=== PATIENT | female | born 1940 | race Caucasian/White ===

== ENCOUNTER 2017-02-19 13:22 | Emergency (ER) | payer MEDICARE ==
[2017-02-19] MEDS ORDERED: DIPH/PERTUSS(ACELL)/TETANUS VAC/PF 0.5 ML SYR (>=10YO) IM ONE (14:11)
--- NOTE | 2017-02-19 14:22 | ER Document Report ---
ED Extremity Problem, Lower - General Chief Complaint: Knee Injury Stated Complaint: FALL LEFT KNEE PAIN Mode of Arrival: Ambulatory Information source: Patient TRAVEL OUTSIDE OF THE [place] IN LAST 30 DAYS: No - HPI Patient complains to provider of: Injury, Pain, Swelling Location: Knee Notes: Patient states that she was walking through her house and tripped over some rolled up carpet falling and landing on her left knee. She fell she slid forward and scraped her left forearm as well. She denies hitting her head. She denies loss of consciousness. She denies any neck or back pain. No chest pain or shortness of breath. No abdominal pain. She takes aspirin, denies any other sort of anticoagulant medications. She denies any blurred or loss vision. She complains of pain in the left knee with swelling. She is able to ambulate. She's had a prior knee replacement done. She also has a skin tear to the left forearm. Bleeding is controlled. She denies any bony tenderness to the left arm. She denies any numbness, tingling, weakness. She has no other complaints at this moment. - Related Data Allergies/Adverse Reactions: erythromycin base [Erythromycin Base] Allergy (Intermediate, Verified 02/19/17 13:35) Hives prednisone [Prednisone] Adverse Reaction (Intermediate, Verified 02/19/17 13:35) Hyperactivity Past Medical History - Social History Smoking Status: Former Smoker Chew tobacco use (# tins/day): No Frequency of alcohol use: None Drug Abuse: None Family History: Reviewed & Not Pertinent Patient has suicidal ideation: No Patient has homicidal ideation: No - Past Medical History Cardiac Medical History: Reports: Hx Coronary Artery Disease, Hx Hypercholesterolemia - meds x 5 years, Hx Hypertension - meds x 10 years, Hx Heart Murmur Denies: Hx Atrial Fibrillation, Hx Congestive Heart Failure, Hx Heart Attack , Hx Peripheral Vascular Disease, Hx Pulmonary Embolism Pulmonary Medical History: Reports: Hx Bronchitis - multiple times, Hx Pneumonia - @ [facility] approx 2 years ago Denies: Hx Asthma, Hx COPD - ? lung disease on 1 yr for years, Hx Respiratory Failure, Hx Sleep Apnea, Hx Tuberculosis Neurological Medical History: Denies: Hx Cerebrovascular Accident, Hx Seizures Renal/ Medical History: Denies: Hx End Stage Renal Disease, Hx Kidney Stones, Hx Ovarian Cysts, Hx Peritoneal Dialysis, Hx Pelvic Inflammatory Disease Malignancy Medical History: Reports: Hx Cervical Cancer - [facility] 1969 (cervical vs "uterine" ca). Denies: Hx Breast Cancer, Hx Leukemia, Hx Lung Cancer, Hx Ovarian Cancer GI Medical History: Reports: Hx Gastroesophageal Reflux Disease - meds x 10 years, Hx Ulcer - approx 15 years ago (tx'ed p.o. meds x 15 days). Denies: Hx Crohn's Disease, Hx Hepatitis, Hx Hiatal Hernia, Hx Irritable Bowel, Hx Liver Failure Musculoskeltal Medical History: Reports Hx Arthritis, Denies Hx Fibromyalgia, Denies Hx Multiple Sclerosis, Denies Hx Muscular Dystrophy Psychiatric Medical History: Reports: Hx Depression - meds x 10 years Denies: Hx Bipolar Disorder, Hx Dementia, Hx Post Traumatic Stress Disorder, Hx Schizophrenia Traumatic Medical History: Denies: Hx Fractures Infectious Medical History: Denies: Hx Hepatitis, Hx HIV Past Surgical History: Reports: Hx Cardiac Surgery - stent, Hx Gynecologic Surgery - cervix x 3, Hx Hysterectomy - [facility] 1969, Hx Orthopedic Surgery - neck and rt foot, left knee. Denies: Hx Appendectomy, Hx Bowel Surgery, Hx Section, Hx Cholecystectomy, Hx Colostomy, Hx Coronary Artery Bypass Graft, Hx Gastric Bypass Surgery, Hx Herniorrhaphy, Hx Mastectomy, Hx Open Heart Surgery, Hx Pacemaker, Hx Tonsillectomy, Hx Tubal Ligation - Immunizations Hx Diphtheria, Pertussis, Tetanus Vaccination: Yes Hx Pneumococcal Vaccination: 10/23/13 Review of Systems - Review of Systems -: Yes All other systems reviewed and negative Physical Exam - Vital signs Vitals: Temp Pulse Resp BP Pulse Ox 97.8 F 59 L 19 148/61 H 90 L 02/19/17 13:28 02/19/17 13:28 02/19/17 13:28 02/19/17 13:28 02/19/17 13:28 - Notes Notes: GENERAL: alert, cooperative, nontoxic, no distress. HEAD: normocephalic, atraumatic EYES: conjunctiva pink without discharge, no external redness or swelling. EARS: no external swelling, no external redness NOSE: atraumatic, no external swelling MOUTH/THROAT: mucous membranes moist and pink NECK: soft, supple, full range of motion, no meningismus. CHEST: no distress, lungs clear and equal throughout. No wheezing, rales, rhonchi. CARDIAC: regular rate and rhythm, no murmur, normal capillary refill, normal pulses. BACK: full range of motion, no CVA tenderness. No midline tenderness step-off or crepitus to palpation of the cervical, thoracic, lumbar spine. EXTREMITIES: full range of motion of all extremities. Patient started to have swelling to the left anterior knee. She has some mild tenderness to palpation of this. Slight ecchymosis. No erythema. No obvious ligament instability. Normal pulse and sensation distally. Normal straight leg raise. Patient has 2 skin tears to the volar aspect of the left forearm. No active bleeding. Most of the skin is missing, there is a small area where the skin has been peeled back. NEURO: alert and oriented 3, no focal deficits, full range of motion of all extremities. PYSCH: appropriate mood, affect. Patient is cooperative. SKIN: pink, warm, dry, no rash. Course - Re-evaluation Re-evalutation: 02/19/17 15:49 Patient is nontoxic. Stable vitals. The patient has a contusion to the left knee. No instability of the joint. She has skin tear to the left forearm which was cleaned and dressed. The skin was trimmed. The patient will be discharged home with instructions to ice and elevate and compress her knee. She is already on Percocet for chronic pain. She can take this as needed. Follow-up with her knee continues to hurt in one week, sooner for increased pain , fever, redness, any further concerns. The patient is noted to have elevated blood pressure during today's emergency department visit. The patient was informed of this finding. The patient was instructed that this may be related to pre-hypertension and requires further evaluation with a primary care provider. The patient has no hypertensive symptoms at this time. The patient's emergency department workup and current diagnosis were explained to the patient and or family. Follow-up instructions were provided. Medications if prescribed were discussed. Instructions for when to return to the emergency department including specific worrisome symptoms were discussed with the patient and/or family. - Vital Signs Vital signs: Temp Pulse Resp BP Pulse Ox 97.8 F 59 L 19 148/61 H 90 L 02/19/17 13:28 02/19/17 13:28 02/19/17 13:28 02/19/17 13:28 02/19/17 13:28 - Diagnostic Test Radiology reviewed: Image reviewed, Reports reviewed - Negative Procedures - Immobilization left knee Pre-Proc Neuro Vasc Exam: Normal Immobilizer type: Ramon wrap Performed by: PCT Post-Proc Neuro Vasc Exam: Normal Alignment checked and good: Yes Discharge - Discharge Clinical Impression: Skin tear Contusion, knee Qualifiers: Encounter type: initial encounter Laterality: left Qualified Code(s): S80.02XA - Contusion of left knee, initial encounter Condition: Stable Disposition: HOME, SELF-CARE Instructions: Ice & Elevation ([facility]), Sprained Knee ([facility]) Additional Instructions: Take her normal pain medication as prescribed. Wear Ramon wrap. Apply ice. Clean wound twice a day with soap and water. Follow-up for increased pain, fever, redness, swelling, drainage, any further concerns. Your blood pressure was elevated during today's visit. Have this rechecked with your doctor. Forms: Elevated Blood Pressure
[2017-02-19 16:00] VITALS: BP 138/70
== END 2017-02-19 16:00 | disposition home or self-care (01) ==
LOC: ER 13:22
DX: S51.812A Laceration without foreign body of left forearm, initial encounter (principal); S80.02XA Contusion of left knee, initial encounter; W01.0XXA Fall on same level from slipping, tripping and stumbling without subsequent striking against object, initial encounter; Y92.009 Unspecified place in unspecified non-institutional (private) residence as the place of occurrence of the external cause; Y99.8 Other external cause status; I25.10 Atherosclerotic heart disease of native coronary artery without angina pectoris; E78.00 Pure hypercholesterolemia, unspecified; I10 Essential (primary) hypertension; Z23 Encounter for immunization; Z87.891 Personal history of nicotine dependence; Z88.3 Allergy status to other anti-infective agents; Z85.41 Personal history of malignant neoplasm of cervix uteri; Z90.710 Acquired absence of both cervix and uterus
CPT/HCPCS: 90471; 90715; 99283

== ENCOUNTER → 2017-05-22 | Outpatient (CLI) | payer MEDICARE ==
[2017-05-22 15:16] LABS: ANION GAP 10 (5-19); BLOOD UREA NITROGEN 14 mg/dL (7-20); CALCIUM 9.2 mg/dL (8.4-10.2); CARBON DIOXIDE 29 mmol/L (22-30); CHLORIDE 98 mmol/L (98-107); CHOLESTEROL 132.85 mg/dL (0-200); CREATININE RESULT 0.85 mg/dL (0.52-1.25); Direct HDL 48 mg/dL (>40); GLUCOSE 87 mg/dL (75-110); POTASSIUM 4.7 mmol/L (3.6-5.0); SODIUM 136.9 mmol/L (137-145); TRIGLYCERIDES 99 mg/dL (<150)
[2017-05-22 15:29] LABS: DIRECT LDL 58 mg/dL (<100)
== END ==
LOC: OD 13:27
PROVIDERS: ATTEND Internal Medicine Cardiovascular Disease
DX: E78.00 Pure hypercholesterolemia, unspecified (principal); Z79.899 Other long term (current) drug therapy
CPT/HCPCS: 36415; 80048; 80061

== ENCOUNTER → 2017-07-06 | Outpatient (CLI) | payer MEDICARE ==
[2017-07-06 11:25] LABS: ANION GAP 8 (5-19); BLOOD UREA NITROGEN 16 mg/dL (7-20); CALCIUM 9.8 mg/dL (8.4-10.2); CARBON DIOXIDE 31 mmol/L (22-30); CHLORIDE 98 mmol/L (98-107); CREATININE RESULT 0.85 mg/dL (0.52-1.25); GLUCOSE 81 mg/dL (75-110); SODIUM 137.2 mmol/L (137-145)
== END ==
LOC: OD 08:38
PROVIDERS: ATTEND Internal Medicine Nephrology
DX: N18.2 Chronic kidney disease, stage 2 (mild) (principal); E87.5 Hyperkalemia
CPT/HCPCS: 36415; 80048

== ENCOUNTER → 2017-10-20 | Outpatient (CLI) | payer MEDICARE ==
--- NOTE | 2017-10-20 11:57 | RADIOLOGY REPORT (SQ) ---
EXAM DESCRIPTION: CHEST PA/LATERAL COMPLETED DATE/TIME: 10/20/2017 11:00 am REASON FOR STUDY: BRONCHIECTASIS, UNCOMPLICATED COMPARISON: Chest films 10/14/2011, 04/23/2015, 07/02/2015 EXAM PARAMETERS: NUMBER OF VIEWS: two views TECHNIQUE: Digital Frontal and Lateral radiographic views of the chest acquired. RADIATION DOSE: NA LIMITATIONS: none FINDINGS: LUNGS AND PLEURA: Patchy right basilar airspace disease, pneumonia versus atelectasis. Minimal bandlike atelectasis left lung base. No pleural effusions or pneumothorax. MEDIASTINUM AND HILAR STRUCTURES: No masses or contour abnormalities. HEART AND VASCULAR STRUCTURES: Heart normal size. No evidence for failure. BONES: No acute findings. HARDWARE: Lower cervical fusion hardware. Electrode wires over the posterior chest soft tissues OTHER: No other significant finding. IMPRESSION: Right basilar airspace disease pneumonia versus atelectasis TECHNICAL DOCUMENTATION: JOB ID: [id number] [employer]- All Rights Reserved
== END ==
LOC: OD 10:43
PROVIDERS: ATTEND Physician Assistant
DX: J47.9 Bronchiectasis, uncomplicated (principal)
CPT/HCPCS: 71020

== ENCOUNTER → 2017-11-14 | Outpatient (CLI) | payer MEDICARE ==
--- NOTE | 2017-11-14 09:50 | RADIOLOGY REPORT (SQ) ---
EXAM DESCRIPTION: CHEST PA/LATERAL COMPLETED DATE/TIME: 11/14/2017 9:26 am REASON FOR STUDY: BRONCHIECTASIS WITH (ACUTE) EXACERBATION COMPARISON: Two-view chest 10/20/2017, 07/02/2015 EXAM PARAMETERS: NUMBER OF VIEWS: two views TECHNIQUE: Digital Frontal and Lateral radiographic views of the chest acquired. RADIATION DOSE: NA LIMITATIONS: none FINDINGS: LUNGS AND PLEURA: Bandlike scarring or atelectasis in the right posterior lower lobe. No fluffy alveolar infiltrates worrisome for edema or pneumonia. No pleural effusion. No pneumothor ax. MEDIASTINUM AND HILAR STRUCTURES: No masses or contour abnormalities. HEART AND VASCULAR STRUCTURES: Heart normal size. No evidence for failure. BONES: Osteoporotic without thoracic compression HARDWARE: Lower cervical fixation hardware, electrodes for a cervical neurostimulator OTHER: No other significant finding. IMPRESSION: Bandlike atelectasis right lower lobe TECHNICAL DOCUMENTATION: JOB ID: [id number] [employer]- All Rights Reserved
== END ==
LOC: OD 09:05
PROVIDERS: ATTEND Physician Assistant
DX: J47.1 Bronchiectasis with (acute) exacerbation (principal); J98.11 Atelectasis
CPT/HCPCS: 71046

== ENCOUNTER → 2017-11-15 | Outpatient (CLI) | payer MEDICARE ==
[2017-11-15 16:12] LABS: ALANINE AMINOTRANSFERASE 42 U/L (9-52); ALBUMIN 4.2 g/dL (3.5-5.0); ALKALINE PHOSPHATASE 81 U/L (38-126); ANION GAP 10 (5-19); ASPARTATE AMINO TRANSFERASE 41 U/L (14-36); BILIRUBIN,DIRECT 0.2 mg/dL (0.0-0.4); BILIRUBIN,TOTAL 0.4 mg/dL (0.2-1.3); BLOOD UREA NITROGEN 12 mg/dL (7-20); CALCIUM 9.6 mg/dL (8.4-10.2); CARBON DIOXIDE 27 mmol/L (22-30); CHLORIDE 101 mmol/L (98-107); CHOLESTEROL 150.21 mg/dL (0-200); GLUCOSE 86 mg/dL (75-110); POTASSIUM 4.5 mmol/L (3.6-5.0); SODIUM 137.5 mmol/L (137-145); TOTAL PROTEIN 6.4 g/dL (6.3-8.2); TRIGLYCERIDES 103 mg/dL (<150)
[2017-11-15 16:26] LABS: DIRECT LDL 65 mg/dL (<100)
== END ==
LOC: OD 14:34
PROVIDERS: ATTEND Internal Medicine Cardiovascular Disease
DX: E78.00 Pure hypercholesterolemia, unspecified (principal); Z79.899 Other long term (current) drug therapy; I10 Essential (primary) hypertension
CPT/HCPCS: 36415; 80048; 80061; 80076

== ENCOUNTER → 2018-01-10 | Outpatient (CLI) | payer MEDICARE ==
[2018-01-10 10:34] LABS: APPEARANCE,URINE CLEAR; BILIRUBIN,URINE NEGATIVE (NEGATIVE); COLOR,URINE YELLOW; GLUCOSE, URINE NEGATIVE (NEGATIVE); KETONES,URINE NEGATIVE (NEGATIVE); LEUKOCYTE ESTERASE,URINE TRACE (NEGATIVE); NITRITE,URINE NEGATIVE (NEGATIVE); PROTEIN,URINE NEGATIVE (NEGATIVE); URINE SPECIFIC GRAVITY 1.025
[2018-01-10 11:05] LABS: ANION GAP 9 (5-19); BLOOD UREA NITROGEN 19 mg/dL (7-20); CALCIUM 9.5 mg/dL (8.4-10.2); CARBON DIOXIDE 28 mmol/L (22-30); CHLORIDE 98 mmol/L (98-107); GLUCOSE 85 mg/dL (75-110); POTASSIUM 4.9 mmol/L (3.6-5.0); SODIUM 134.5 mmol/L (137-145)
[2018-01-11 09:39] LABS: CREATININE URINE 213.4 mg/dL (Not Estab.); MICROALBUMIN URINE 4.5 ug/mL (Not Estab.)
== END ==
LOC: OD 09:50
PROVIDERS: ATTEND Internal Medicine Nephrology
DX: N18.2 Chronic kidney disease, stage 2 (mild) (principal); E87.5 Hyperkalemia
CPT/HCPCS: 36415; 80048; 81001; 82043; 82570

== ENCOUNTER → 2018-07-17 | Outpatient (CLI) | payer MEDICARE ==
[2018-07-17 11:12] LABS: APPEARANCE,URINE CLOUDY; BILIRUBIN,URINE NEGATIVE (NEGATIVE); COLOR,URINE YELLOW; GLUCOSE, URINE NEGATIVE (NEGATIVE); KETONES,URINE NEGATIVE (NEGATIVE); LEUKOCYTE ESTERASE,URINE TRACE (NEGATIVE); NITRITE,URINE NEGATIVE (NEGATIVE); PROTEIN,URINE NEGATIVE (NEGATIVE); URINE SPECIFIC GRAVITY 1.009; UROBILINOGEN,URINE NEGATIVE mg/dL (<2.0)
[2018-07-17 11:35] LABS: ANION GAP 5 (5-19); BLOOD UREA NITROGEN 12 mg/dL (7-20); CALCIUM 9.2 mg/dL (8.4-10.2); CARBON DIOXIDE 30 mmol/L (22-30); CHLORIDE 100 mmol/L (98-107); GLUCOSE 77 mg/dL (75-110); POTASSIUM 4.4 mmol/L (3.6-5.0); SODIUM 135.4 mmol/L (137-145)
== END ==
LOC: OD 10:18
PROVIDERS: ATTEND Internal Medicine Nephrology
DX: N18.2 Chronic kidney disease, stage 2 (mild) (principal); E87.1 Hypo-osmolality and hyponatremia
CPT/HCPCS: 36415; 80048; 81001

== ENCOUNTER → 2018-08-15 | Outpatient (CLI) | payer MEDICARE ==
[2018-08-15 09:30] LABS: ALANINE AMINOTRANSFERASE 24 U/L (9-52); ALBUMIN 3.8 g/dL (3.5-5.0); ALKALINE PHOSPHATASE 105 U/L (38-126); ANION GAP 13 (5-19); ASPARTATE AMINO TRANSFERASE 23 U/L (14-36); BILIRUBIN,DIRECT 0.2 mg/dL (0.0-0.4); BILIRUBIN,TOTAL 0.3 mg/dL (0.2-1.3); BLOOD UREA NITROGEN 16 mg/dL (7-20); CALCIUM 9.4 mg/dL (8.4-10.2); CARBON DIOXIDE 26 mmol/L (22-30); CHLORIDE 96 mmol/L (98-107); CHOLESTEROL 132.02 mg/dL (0-200); GLUCOSE 102 mg/dL (75-110); POTASSIUM 4.5 mmol/L (3.6-5.0); TOTAL PROTEIN 6.4 g/dL (6.3-8.2); TRIGLYCERIDES 68 mg/dL (<150)
[2018-08-15 09:41] LABS: DIRECT LDL 68 mg/dL (<100)
[2018-08-15 09:45] LABS: CREATINE KINASE < 20 U/L (30-135)
== END ==
LOC: OD 08:12
PROVIDERS: ATTEND Internal Medicine Cardiovascular Disease
DX: E78.00 Pure hypercholesterolemia, unspecified (principal); I25.119 Atherosclerotic heart disease of native coronary artery with unspecified angina pectoris; I10 Essential (primary) hypertension; Z79.899 Other long term (current) drug therapy
CPT/HCPCS: 36415; 80048; 80061; 80076; 82550

== ENCOUNTER → 2018-08-30 | Outpatient (CLI) | payer MEDICARE ==
[2018-08-30 10:38] LABS: BLOOD UREA NITROGEN 17 mg/dL (7-20); CALCIUM 9.5 mg/dL (8.4-10.2); CARBON DIOXIDE 29 mmol/L (22-30); GLUCOSE 83 mg/dL (75-110); SODIUM 140.6 mmol/L (137-145)
[2018-08-30 10:40] LABS: ANION GAP 11 (5-19); CHLORIDE 101 mmol/L (98-107)
== END ==
LOC: OD 09:29
PROVIDERS: ATTEND Physician Assistant
DX: I12.9 Hypertensive chronic kidney disease with stage 1 through stage 4 chronic kidney disease, or unspecified chronic kidney disease (principal); N18.3 Chronic kidney disease, stage 3 (moderate); Z79.899 Other long term (current) drug therapy
CPT/HCPCS: 36415; 80048

== ENCOUNTER → 2018-09-04 | Outpatient (CLI) | payer MEDICARE ==
--- NOTE | 2018-09-04 15:22 | WOMENS IMAGING REPORT ---
EXAM DESCRIPTION: 3D SCREENING MAMMO BILAT COMPLETED DATE/TIME: 09/04/2018 1:12 pm REASON FOR STUDY: BILATERAL SCREENING MAMMO 3D/Z12.31 Z12.31 ENCNTR SCREEN MAMMOGRAM FOR MALIGNANT NEOPLASM OF MARIEL COMPARISON: Multiple since 2008 TECHNIQUE: Standard craniocaudal and mediolateral oblique views of each breast recorded using digita l acquisition and breast tomosynthesis. LIMITATIONS: None. FINDINGS: No masses, calcifications or architectural distortion. No areas of suspicion. Read with the assistance of CAD. .[facility] - R2 Cenova Version 1.3 .[facility] Imaging - R2 Cenova Version 1.3 .[facility] - R2 Cenova Version 2.4 .[facility] [place] R2 Cenova Version 2.4 .[facility] - R2 Top Lift Trimmer Version 9.2 IMPRESSION: NORMAL MAMMOGRAM. BIRADS 1. BREAST DENSITY: c. The breasts are heterogeneously dense, which may obscure small masses. BIRAD: 1 NEGATIVE RECOMMENDATION: ROUTINE SCREENING Please continue yearly bilateral screening mammography/tomosynthesis in August 2019 COMMENT: The patient has been notified of the results by letter per SA requirements. Additional no tification policies are in place for contacting patient with suspicious or incomplete findings. Quality ID #[id number]: The [employer] recommends an annual screening mammogram for women aged 40 years or over. This facility utilizes a reminder system to ensure that all patients receive reminder letters, and/or direct phone calls for appointments. This includes reminders for routine scr eening mammograms, diagnostic mammograms, or other Breast Imaging Interventions when appropriate. Th is patient will be placed in the appropriate reminder system. The [employer] (ACR) has developed recommendations for screening MRI of the breast s in certain patient populations, to be used in conjunction with mammography. Breast MRI surveillanc e may be appropriate for women with more than 20% lifetime risk of developing breast cancer as deter mined by genetic testing, significant family history of the disease, or history of mantle radiation f or Hodgkins Disease. ACR Practice Guidelines 2008. DBT Technology DBT is a type of tomographic mammography. With conventional mammography, overlapping breast tissue ma y make lesions difficult to detect, even with good compression. DBT uses an x-ray tube that rotates a round the breast, taking images at different angles. These images are then combined to create thin sl ices of the breast that the radiologist can view as a 3D reconstruction. The [employer] unit can perform full-field digital mammograms (2D imaging); or DBT (3D imaging); or both, in a combination mode that quickly performs both the mammogram and the tomosynthesis scan while the breast is still compressed. PQRS 6045F: Fluoroscopic imaging is not utilized for breast tomosynthesis. TECHNICAL DOCUMENTATION: FINDING NUMBER: (1) ASSESSMENT: (1) JOB ID: [id number] [employer]- All Rights Reserved Reading location - IP/workstation name: [email or web address]
== END ==
LOC: WI 12:42
PROVIDERS: ATTEND Physician Assistant
DX: Z12.31 Encounter for screening mammogram for malignant neoplasm of breast (principal)
CPT/HCPCS: 77063; 77067

== ENCOUNTER → 2018-09-25 | Outpatient (CLI) | payer MEDICARE ==
[2018-09-25 10:26] LABS: ANION GAP 10 (5-19); BLOOD UREA NITROGEN 21 mg/dL (7-20); CALCIUM 9.6 mg/dL (8.4-10.2); CARBON DIOXIDE 29 mmol/L (22-30); CHLORIDE 100 mmol/L (98-107); GLUCOSE 83 mg/dL (75-110); POTASSIUM 5.2 mmol/L (3.6-5.0); SODIUM 139.3 mmol/L (137-145)
== END ==
LOC: OD 09:06
PROVIDERS: ATTEND Internal Medicine Cardiovascular Disease
DX: I12.9 Hypertensive chronic kidney disease with stage 1 through stage 4 chronic kidney disease, or unspecified chronic kidney disease (principal); N18.3 Chronic kidney disease, stage 3 (moderate); E87.5 Hyperkalemia
CPT/HCPCS: 36415; 80048

== ENCOUNTER → 2018-09-27 | Outpatient (CLI) | payer MEDICARE ==
[2018-09-27 08:44] LABS: ANION GAP 7 (5-19); BLOOD UREA NITROGEN 22 mg/dL (7-20); CALCIUM 9.5 mg/dL (8.4-10.2); CARBON DIOXIDE 33 mmol/L (22-30); CHLORIDE 99 mmol/L (98-107); GLUCOSE 79 mg/dL (75-110); POTASSIUM 5.5 mmol/L (3.6-5.0); SODIUM 138.8 mmol/L (137-145)
== END ==
LOC: LAB 08:00
PROVIDERS: ATTEND Internal Medicine Cardiovascular Disease
DX: E87.5 Hyperkalemia (principal)
CPT/HCPCS: 36415; 80048

== ENCOUNTER → 2018-10-02 | Outpatient (CLI) | payer MEDICARE ==
[2018-10-02 08:50] LABS: ANION GAP 9 (5-19); BLOOD UREA NITROGEN 21 mg/dL (7-20); CALCIUM 9.1 mg/dL (8.4-10.2); CARBON DIOXIDE 29 mmol/L (22-30); CHLORIDE 101 mmol/L (98-107); GLUCOSE 81 mg/dL (75-110); POTASSIUM 5.1 mmol/L (3.6-5.0); SODIUM 139.1 mmol/L (137-145)
== END ==
LOC: LAB 08:21
PROVIDERS: ATTEND Internal Medicine Cardiovascular Disease
DX: E87.5 Hyperkalemia (principal)
CPT/HCPCS: 36415; 80048

== ENCOUNTER → 2018-10-18 | Outpatient (CLI) | payer MEDICARE ==
[2018-10-18 15:19] LABS: ANION GAP 6 (5-19); BLOOD UREA NITROGEN 16 mg/dL (7-20); CALCIUM 9.6 mg/dL (8.4-10.2); CARBON DIOXIDE 33 mmol/L (22-30); CHLORIDE 94 mmol/L (98-107); GLUCOSE 100 mg/dL (75-110); POTASSIUM 5.2 mmol/L (3.6-5.0); SODIUM 133.1 mmol/L (137-145)
== END ==
LOC: LAB 14:44
PROVIDERS: ATTEND Internal Medicine Cardiovascular Disease
DX: E87.5 Hyperkalemia (principal)
CPT/HCPCS: 36415; 80048

== ENCOUNTER → 2018-11-20 | Outpatient (CLI) | payer SELFPAY ==
[2018-11-20 12:36] LABS: ANION GAP 10 (5-19); BLOOD UREA NITROGEN 15 mg/dL (7-20); CALCIUM 9.4 mg/dL (8.4-10.2); CARBON DIOXIDE 30 mmol/L (22-30); CHLORIDE 96 mmol/L (98-107); GLUCOSE 84 mg/dL (75-110); POTASSIUM 4.8 mmol/L (3.6-5.0)
== END ==
LOC: LAB 11:55
PROVIDERS: ATTEND Internal Medicine Cardiovascular Disease
DX: I10 Essential (primary) hypertension (principal); Z79.899 Other long term (current) drug therapy
CPT/HCPCS: 36415; 80048

== ENCOUNTER → 2018-12-04 | Outpatient (CLI) | payer MEDICARE ==
--- NOTE | 2018-12-04 12:31 | WOMENS IMAGING REPORT ---
EXAM DESCRIPTION: BONE DENSITY HIP/SPINE COMPLETED DATE/TIME: 12/04/2018 10:28 am REASON FOR STUDY: MENOPAUSE;Z78.0 Z78.0 ASYMPTOMATIC MENOPAUSAL STATE COMPARISON: 2007 TECHNIQUE: Dual-Energy X-ray Absorptiometry (DEXA) of the AP Spine and Hip. LIMITATIONS: None. FINDINGS: LUMBAR SPINE: The bone mineral density (BMD) measured from L1-L4 in the AP projection correlates with a T-score of 2.9, which is normal as defined by the World Health Organization. HIP: The bone mineral density (BMD) measured in the left hip correlates with a T-score of 0.1, which is no rmal as defined by the World Health Organization. IMPRESSION: 1. LUMBAR SPINE: NORMAL. 2. HIP: NORMAL. COMMENT: The World Health Organization defines low BMD as follows: T-score: Normal: Greater than -1.0 Osteopenia: Between -1.0 and -2.5 Osteoporosis: Less than -2.5 without fractures Established osteoporosis: Less than -2.5 with fractures In general, you may wish to consider: Diagnosis Treatment Follow-up DEXA Normal BMD Prevention 2-3 years Osteopenia Prevention/Therapy 1-2 years Osteoporosis Therapy Yearly TECHNICAL DOCUMENTATION: JOB ID: [id number] [employer]- All Rights Reserved Reading location - IP/workstation name: [email or web address]
== END ==
LOC: WI 10:03
PROVIDERS: ATTEND Physician Assistant
DX: Z78.0 Asymptomatic menopausal state (principal)
CPT/HCPCS: 77080

== ENCOUNTER → 2019-01-24 | Outpatient (CLI) | payer MEDICARE ==
[2019-01-24 11:56] LABS: APPEARANCE,URINE CLEAR; BILIRUBIN,URINE NEGATIVE (NEGATIVE); COLOR,URINE STRAW; GLUCOSE, URINE NEGATIVE (NEGATIVE); KETONES,URINE NEGATIVE (NEGATIVE); LEUKOCYTE ESTERASE,URINE SMALL (NEGATIVE); NITRITE,URINE NEGATIVE (NEGATIVE); PROTEIN,URINE NEGATIVE (NEGATIVE); URINE SPECIFIC GRAVITY 1.005; UROBILINOGEN,URINE NEGATIVE mg/dL (<2.0)
[2019-01-24 12:18] LABS: ANION GAP 8 (5-19); BLOOD UREA NITROGEN 24 mg/dL (7-20); CALCIUM 9.2 mg/dL (8.4-10.2); CARBON DIOXIDE 30 mmol/L (22-30); CHLORIDE 97 mmol/L (98-107); GLUCOSE 80 mg/dL (75-110); POTASSIUM 4.9 mmol/L (3.6-5.0); SODIUM 135.1 mmol/L (137-145)
[2019-01-25 10:37] LABS: CREATININE URINE 17.6 mg/dL (Not Estab.)
[2019-01-25 11:35] LABS: MICROALBUMIN URINE <3.0 ug/mL (Not Estab.)
== END ==
LOC: OD 10:57
PROVIDERS: ATTEND Internal Medicine Nephrology
DX: I12.9 Hypertensive chronic kidney disease with stage 1 through stage 4 chronic kidney disease, or unspecified chronic kidney disease (principal); N18.2 Chronic kidney disease, stage 2 (mild)
CPT/HCPCS: 36415; 80048; 81001; 82043; 82570

== ENCOUNTER 2019-02-12 17:17 | Emergency (ER) | payer MEDICARE ==
[2019-02-12] MEDS ORDERED: IPRATROPIUM/ALBUTEROL 0.5-2.5 MG/3 ML AMPUL NEB ONE (18:35)
--- NOTE | 2019-02-12 18:35 | ER Document Report ---
ED Medical Screen (RME) - General Chief Complaint: Shortness Of Breath Stated Complaint: DIFFICULTY BREATHING, CONGESTION Time Seen by Provider: 02/12/19 18:26 Primary Care Provider: JULY RAZO PA-C [Primary Care Provider] - Follow up as needed Mode of Arrival: Ambulatory Information source: Patient, Relative TRAVEL OUTSIDE OF THE [place] IN LAST 30 DAYS: No - HPI Notes: 02/12/19 18:39 79 yr old female with a hx of htn presents today with complaints of productive cough, sob x 3 days. Was seen by her PCP yesterday, states chest x-ray was done but was never given any results. Patient did not take her 60 mg of nifedipine and 10 mg of lisinopril today, her blood pressure is elevated, denies any chest pain, chest tightness. Was concerned because she has had this cough for the last 3 days, states she does feel short of breath when she does cough. 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 razo is her primary care provider as well as Dr. 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 exam; PHYSICAL EXAMINATION: GENERAL: Well-appearing, well-nourished and in no acute distress. NECK: Normal range of motion, supple without lymphadenopathy LUNGS: Breath sounds clear to auscultation bilaterally and equal. No wheezes rales or rhonchi. HEART: Regular rate and rhythm without murmurs ABDOMEN: Soft, nontender, normoactive bowel sounds. No guarding, no rebound. No masses appreciated. Blood pressure today is elevated however patient did not take her afternoon blood pressure medications, will start cardiac work-up. Pending labs, EKG and chest x-ray, will initiate breathing treatment. Patient is afebrile, stable although she is hypertensive, is not having any hypertensive urgency, normally her blood pressures run around 150s over 90s that she attributes her elevated blood pressure today to not taking her oral blood pressure medications. Then at bedside who also takes care of patient. I have greeted and performed a rapid initial assessment of this patient. A comprehensive ED assessment and evaluation of the patient, analysis of test results and completion of medical decision making process will be conducted by an additional ED providers. . - Related Data Allergies/Adverse Reactions: erythromycin base [Erythromycin Base] Allergy (Intermediate, Verified 02/19/17 13:35) Hives prednisone [Prednisone] Adverse Reaction (Intermediate, Verified 02/19/17 13:35) Hyperactivity Past Medical History - Past Medical History Cardiac Medical History: Reports: Hx Coronary Artery Disease, Hx Hypercholesterolemia - meds x 5 years, Hx Hypertension - meds x 10 years, Hx Heart Murmur Denies: Hx Atrial Fibrillation, Hx Congestive Heart Failure, Hx Heart Attack, Hx Peripheral Vascular Disease, Hx Pulmonary Embolism Pulmonary Medical History: Reports: Hx Bronchitis - multiple times, Hx Pneumonia - @ [facility] approx 2 years ago Denies: Hx Asthma, Hx COPD - ? lung disease on 1 yr for years, Hx Respiratory Failure, Hx Sleep Apnea, Hx Tuberculosis Neurological Medical History: Denies: Hx Cerebrovascular Accident, Hx Seizures Renal/ Medical History: Denies: Hx End Stage Renal Disease, Hx Kidney Stones, Hx Ovarian Cysts, Hx Peritoneal Dialysis, Hx Pelvic Inflammatory Disease Malignancy Medical History: Reports: Hx Cervical Cancer - [facility] 1969 (cervical vs "uterine" ca). Denies: Hx Breast Cancer, Hx Leukemia, Hx Lung Cancer, Hx Ovarian Cancer GI Medical History: Reports: Hx Gastroesophageal Reflux Disease - meds x 10 years, Hx Ulcer - approx 15 years ago (tx'ed p.o. meds x 15 days). Denies: Hx Crohn's Disease, Hx Hepatitis, Hx Hiatal Hernia, Hx Irritable Bowel, Hx Liver Failure, Hx Pancreatitis Musculoskeltal Medical History: Reports Hx Arthritis, Denies Hx Fibromyalgia, Denies Hx Multiple Sclerosis, Denies Hx Muscular Dystrophy Psychiatric Medical History: Reports: Hx Depression - meds x 10 years Denies: Hx Bipolar Disorder, Hx Dementia, Hx Post Traumatic Stress Disorder, Hx Schizophrenia Traumatic Medical History: Denies: Hx Fractures Infectious Medical History: Denies: Hx Hepatitis, Hx HIV Past Surgical History: Reports: Hx Cardiac Surgery - stent, Hx Gynecologic Surgery - cervix x 3, Hx Hysterectomy, Hx Orthopedic Surgery - neck and rt foot, left knee. Denies: Hx Appendectomy, Hx Bowel Surgery, Hx Section, Hx Cholecystectomy, Hx Colostomy, Hx Coronary Artery Bypass Graft, Hx Gastric Bypass Surgery, Hx Herniorrhaphy, Hx Mastectomy, Hx Open Heart Surgery, Hx Pacemaker, Hx Tonsillectomy, Hx Tubal Ligation - Immunizations Hx Diphtheria, Pertussis, Tetanus Vaccination: Yes Physical Exam - Vital signs Vitals: Temp Pulse Resp BP Pulse Ox 98.1 F 67 16 210/60 H 97 02/12/19 17:27 02/12/19 17:27 02/12/19 17:27 02/12/19 17:27 02/12/19 17:27 Course - Vital Signs Vital signs: Temp Pulse Resp BP Pulse Ox 98.1 F 67 16 210/60 H 97 02/12/19 17:27 02/12/19 17:27 02/12/19 17:27 02/12/19 17:27 02/12/19 17:27 Doctor's Discharge - Discharge Referrals: JULY RAZO PA-C [Primary Care Provider] - Follow up as needed
[2019-02-12] MEDS ORDERED: NIFEDIPINE 30 MG TAB.ER.24 PO ONE (18:37)
--- NOTE | 2019-02-12 19:07 | RADIOLOGY REPORT (SQ) ---
EXAM DESCRIPTION: CHEST SINGLE VIEW COMPLETED DATE/TIME: 02/12/2019 6:53 pm REASON FOR STUDY: cough, sob COMPARISON: Two-view chest 07/02/2015 EXAM PARAMETERS: NUMBER OF VIEWS: One view. TECHNIQUE: Single frontal radiographic view of the chest acquired. RADIATION DOSE: NA LIMITATIONS: None. FINDINGS: LUNGS AND PLEURA: Trace fluid in the right lateral costophrenic sulcus. Mild pulmonary vascular prominence without alveolar or interstitial edema. No dense consolidation worrisome for pneumonia. No pneumothorax MEDIASTINUM AND HILAR STRUCTURES: No masses. Contour normal. HEART AND VASCULAR STRUCTURES: No cardiomegaly BONES: No acute findings. HARDWARE: None in the chest. OTHER: No other significant finding. IMPRESSION: Pulmonary vascular prominence with trace right pleural fluid TECHNICAL DOCUMENTATION: JOB ID: [id number] [employer]- All Rights Reserved Reading location - IP/workstation name: [email or web address]
[2019-02-12 19:42] LABS: ABSOLUTE EOSINOPHILS # (AUTO) 0.1 10^3/uL (0.0-0.6); ABSOLUTE LYMPHOCYTES (AUTO) 1.4 10^3/uL (0.5-4.7); ABSOLUTE MONOCYTES (AUTO) 0.5 10^3/uL (0.1-1.4); ABSOLUTE NEUT (AUTO) 3.7 10^3/uL (1.7-8.2); BASOPHILS % (AUTO) 0.2 % (0-2); EOSINOPHILS % (AUTO) 2.4 % (0-6); HEMATOCRIT 32.7 % (36.0-47.0); HEMOGLOBIN 11.3 g/dL (12.0-15.5); LYMPHOCYTES % (AUTO) 24.3 % (13-45); MEAN CORPUSCULAR HGB CONC 34.6 g/dL (32.0-36.0); MEAN CORPUSCULAR VOLUME 90 fl (80-97); MONOCYTES % (AUTO) 8.4 % (3-13); PLATELET COUNT 186 10^3/uL (150-450); RED BLOOD COUNT 3.65 10^6/uL (3.72-5.28); RED CELL DISTRIBUTION WIDTH 13.8 % (11.5-14.0); SEGMENTED NEUTROPHILS % (AUTO) 64.7 % (42-78); TOTAL CELLS COUNTED % (AUTO) 100 %; WHITE BLOOD COUNT 5.7 10^3/uL (4.0-10.5)
[2019-02-12 20:02] LABS: ALANINE AMINOTRANSFERASE 24 U/L (9-52); ALBUMIN 3.9 g/dL (3.5-5.0); ALKALINE PHOSPHATASE 94 U/L (38-126); ANION GAP 8 (5-19); ASPARTATE AMINO TRANSFERASE 26 U/L (14-36); BILIRUBIN,DIRECT 0.2 mg/dL (0.0-0.4); BILIRUBIN,TOTAL 0.3 mg/dL (0.2-1.3); BLOOD UREA NITROGEN 16 mg/dL (7-20); CALCIUM 9.1 mg/dL (8.4-10.2); CARBON DIOXIDE 27 mmol/L (22-30); CHLORIDE 97 mmol/L (98-107); CREATINE KINASE 146 U/L (30-135); GLUCOSE 85 mg/dL (75-110); POTASSIUM 4.3 mmol/L (3.6-5.0); TOTAL PROTEIN 6.5 g/dL (6.3-8.2)
[2019-02-12 20:14] LABS: CREATINE KINASE MB 3.93 ng/mL (<4.55); TROPONIN I 0.012 ng/mL
[2019-02-12 20:16] LABS: APPEARANCE,URINE CLEAR; BILIRUBIN,URINE NEGATIVE (NEGATIVE); COLOR,URINE STRAW; GLUCOSE, URINE NEGATIVE (NEGATIVE); KETONES,URINE NEGATIVE (NEGATIVE); LEUKOCYTE ESTERASE,URINE TRACE (NEGATIVE); NITRITE,URINE NEGATIVE (NEGATIVE); PROTEIN,URINE NEGATIVE (NEGATIVE); URINE SPECIFIC GRAVITY 1.004; UROBILINOGEN,URINE NEGATIVE mg/dL (<2.0)
[2019-02-12] MEDS ORDERED: FUROSEMIDE 40 MG TABLET PO ONE (20:38)
--- NOTE | 2019-02-12 20:44 | ER Document Report ---
ED General - General Chief Complaint: Shortness Of Breath Stated Complaint: DIFFICULTY BREATHING, CONGESTION Time Seen by Provider: 02/12/19 18:26 Primary Care Provider: JULY LORENZ PA-C [Primary Care Provider] - Follow up tomorrow Mode of Arrival: Ambulatory Notes: Patient is an 79-year-old female with a past medical history of essential hypertension, chronic kidney disease, "multiple leaky valves" with no known history of congestive heart failure, history of coronary artery disease status post stenting x1 who presents complaining of 3-4 days of a feeling of chest congestion, cough that she feels like he is not as productive as it should be. She does when she has coughing fits she feels somewhat short of breath but denies any distinct shortness of breath outside of these fits of coughing. She has noted some trace increase in swelling in her bilateral lower extremities. She has not seen her primary care physician regarding today's concerns. No obvious improving or worsening factors. States she has had similar symptoms in the past with bronchitis. Has not had fever or constitutional symptoms. Regards her symptoms as being moderate, constant since onset, progressively worsening. Denies chest pain. TRAVEL OUTSIDE OF THE [place] IN LAST 30 DAYS: No - Related Data Allergies/Adverse Reactions: erythromycin base [Erythromycin Base] Allergy (Intermediate, Verified 02/19/17 13:35) Hives prednisone [Prednisone] Adverse Reaction (Intermediate, Verified 02/19/17 13:35) Hyperactivity Past Medical History - General Information source: Patient, Relative - Social History Smoking Status: Former Smoker Frequency of alcohol use: None Drug Abuse: None Lives with: Spouse/Significant other Family History: Reviewed & Not Pertinent Patient has suicidal ideation: No Patient has homicidal ideation: No - Past Medical History Cardiac Medical History: Reports: Hx Coronary Artery Disease, Hx Hypercholesterolemia - meds x 5 years, Hx Hypertension - meds x 10 years, Hx Heart Murmur Denies: Hx Atrial Fibrillation, Hx Congestive Heart Failure, Hx Heart Attack, Hx Peripheral Vascular Disease, Hx Pulmonary Embolism Pulmonary Medical History: Reports: Hx Bronchitis - multiple times, Hx Pneumonia - @ [facility] approx 2 years ago Denies: Hx Asthma, Hx COPD - ? lung disease on 1 yr for years, Hx Respiratory Failure, Hx Sleep Apnea, Hx Tuberculosis Neurological Medical History: Denies: Hx Cerebrovascular Accident, Hx Seizures Renal/ Medical History: Denies: Hx End Stage Renal Disease, Hx Kidney Stones, Hx Ovarian Cysts, Hx Peritoneal Dialysis, Hx Pelvic Inflammatory Disease Malignancy Medical History: Reports: Hx Cervical Cancer - [facility] 1969 (cervical vs "uterine" ca). Denies: Hx Breast Cancer, Hx Leukemia, Hx Lung Cancer, Hx Ovarian Cancer GI Medical History: Reports: Hx Gastroesophageal Reflux Disease - meds x 10 years, Hx Ulcer - approx 15 years ago (tx'ed p.o. meds x 15 days). Denies: Hx Crohn's Disease, Hx Hepatitis, Hx Hiatal Hernia, Hx Irritable Bowel, Hx Liver Failure, Hx Pancreatitis Musculoskeletal Medical History: Reports Hx Arthritis, Denies Hx Fibromyalgia, Denies Hx Multiple Sclerosis, Denies Hx Muscular Dystrophy Psychiatric Medical History: Reports: Hx Depression - meds x 10 years Denies: Hx Bipolar Disorder, Hx Dementia, Hx Post Traumatic Stress Disorder, Hx Schizophrenia Traumatic Medical History: Denies: Hx Fractures Infectious Medical History: Denies: Hx Hepatitis, Hx HIV Past Surgical History: Reports: Hx Cardiac Surgery - stent, Hx Gynecologic Surgery - cervix x 3, Hx Hysterectomy, Hx Orthopedic Surgery - neck and rt foot, left knee. Denies: Hx Appendectomy, Hx Bowel Surgery, Hx Section, Hx Cholecystectomy, Hx Colostomy, Hx Coronary Artery Bypass Graft, Hx Gastric Bypass Surgery, Hx Herniorrhaphy, Hx Mastectomy, Hx Open Heart Surgery, Hx Pacemaker, Hx Tonsillectomy, Hx Tubal Ligation - Immunizations Hx Diphtheria, Pertussis, Tetanus Vaccination: Yes Hx Pneumococcal Vaccination: 10/23/13 Review of Systems - Review of Systems Notes: Constitutional: Negative for fever. HENT: Negative for sore throat. Eyes: Negative for visual changes. Cardiovascular: Negative for chest pain. Respiratory: Positive for cough Gastrointestinal: Negative for abdominal pain, vomiting or diarrhea. Genitourinary: Negative for dysuria. Musculoskeletal: Positive bilateral lower extremity edema Skin: Negative for rash. Neurological: Negative for headaches, weakness or numbness. 10 point ROS negative except as marked above and in HPI. Physical Exam - Vital signs Vitals: Temp Pulse Resp BP Pulse Ox 98.1 F 67 16 210/60 H 97 02/12/19 17:27 02/12/19 17:27 02/12/19 17:27 02/12/19 17:27 02/12/19 17:27 Interpretation: Hypertensive - Patient does not take her home antihypertensive medications today Notes: PHYSICAL EXAMINATION: GENERAL: Well-appearing, well-nourished and in no acute distress. HEAD: Atraumatic, normocephalic. EYES: Pupils equal round and reactive to light, extraocular movements intact, sclera anicteric, conjunctiva are normal. ENT: nares patent, oropharynx clear without exudates. Moist mucous membranes. NECK: Normal range of motion, supple without lymphadenopathy LUNGS: Breath sounds clear to auscultation bilaterally and equal. Mild rales at the bases bilaterally more prominent on the right versus left. No distress. HEART: Regular rate and rhythm without murmurs ABDOMEN: Soft, nontender, normoactive bowel sounds. No guarding, no rebound. No masses appreciated. EXTREMITIES: Normal range of motion, trace edema in the bilateral lower extremities is equal and symmetric. No cyanosis. NEUROLOGICAL: No focal neurological deficits. Moves all extremities spontaneously and on command. PSYCH: Normal mood, normal affect. SKIN: Warm, Dry, normal turgor, no rashes or lesions noted. Course - Re-evaluation Re-evalutation: 02/12/19 20:39 Patient presents with some increased bilateral lower extremity edema, nonproductive cough, feeling there is rattling in her chest that she cannot get out. On exam the patient is well in appearance, in no distress, no increased labored breathing. Saturating 97% on room air. No orthopnea. Her chest x-ray shows a small right pleural effusion and increased pulmonary vascular congestion suggestive of mild congestive picture with increased fluid overload. She does take furosemide 20 mg every other day. Troponin normal, remainder of her labs are completely unremarkable. Kidney functions are completely normal. The patient and her have a preference for discharge home as opposed to hospitalization and I do think this is reasonable given that the patient has completely normal vital signs, no orthopnea, no dyspnea, able to ambulate without difficulty and has no significant overt pulmonary edema but rather increased pulmonary vascular congestion lower right pleural effusion. Her clinical history is not consistent with a pneumonia, acute pulmonary embolus or myocardial infarction. She adamantly denies any chest pain, states her shortness of breath is only really present when she is coughing heavily. The patient was noted to be quite hypertensive at time of presentation but has not taken her home oral anti-hypertensive medications prior to presentation today. She has been given furosemide 40 mg p.o. 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 The patient and her are very much so in agreement with this plan, declined hospitalization. At this time will discharge with return precautions and follow-up recommendations. Verbal discharge instructions given a the bedside and opportunity for questions given. Medication warnings reviewed. Patient is in agreement with this plan and has verbalized understanding of return precautions and the need for primary care follow-up in the next 24-72 hours. - Vital Signs Vital signs: Temp Pulse Resp BP Pulse Ox 97.8 F 65 19 167/62 H 95 02/12/19 20:57 02/12/19 20:57 02/12/19 20:57 02/12/19 20:57 02/12/19 20:57 - Laboratory Result Diagrams: 02/12/19 19:28 02/12/19 19:28 Laboratory results interpreted by me: 02/12/19 02/12/19 02/12/19 19:28 19:28 19:53 RBC 3.65 L Hgb 11.3 L Hct 32.7 L Sodium 132.0 L Chloride 97 L Creatine Kinase 146 H Ur Leukocyte Esterase TRACE H - Diagnostic Test Radiology reviewed: Image reviewed, Reports reviewed Radiology results interpreted by me: 02/12/19 20:41 Chest x-ray: There is a trace effusion in the right pleural space, increased pulmonary vascular congestion with very mild pulmonary edema - EKG Interpretation by Me Additional EKG results interpreted by me: 02/12/19 20:44 Sinus rhythm, rate 71. LVH. No ST elevations or depressions. QTC is 461 Discharge - Discharge Clinical Impression: Persistent cough, Recurrent right pleural effusion, Shortness of breath Condition: Good Disposition: HOME, SELF-CARE Additional Instructions: Please increase your furosemide to 20 mg daily for the next 1 week. Please monitor your weight each morning and if you gain more than 2 pounds any 24-hour period please contact your process improvement consultant. As we discussed your chest x-ray does show a small amount of fluid in your lungs and we are using the increased Lasix dosing to get that fluid out of your lungs. Your blood work is otherwise normal, your EKG is unchanged from previous. Please return immediately to the emergency department if you develop worsening symptoms, new symptoms, pass out, have increasing shortness of breath, fever greater than 100.4 F, or have any other symptoms that are worrisome to you. Prescriptions: Furosemide [Lasix 20 mg Tablet] 20 mg PO QAM #7 tablet Referrals: JULY LORENZ PA-C [Primary Care Provider] - Follow up tomorrow
[2019-02-12 20:58] VITALS: BP 167/62
--- NOTE | 2019-02-13 07:49 | EKG REPORT ---
SEVERITY:- ABNORMAL ECG - SINUS RHYTHM LEFT ANTERIOR FASCICULAR BLOCK LEFT VENTRICULAR HYPERTROPHY : Confirmed by: Jose G Garcia MD 13-Feb-2019 07:49:21
== END 2019-02-12 20:58 | disposition home or self-care (01) ==
LOC: ER 17:17
DX: R06.02 Shortness of breath (principal); R09.81 Nasal congestion; R60.0 Localized edema; R05 Cough; I12.9 Hypertensive chronic kidney disease with stage 1 through stage 4 chronic kidney disease, or unspecified chronic kidney disease; N18.9 Chronic kidney disease, unspecified; J90 Pleural effusion, not elsewhere classified
CPT/HCPCS: 93005; 94640; 99285; 36415; 82553; 82550; 85025; 80053; 81001; 84484; 71045; 93010; A9270 ×2; J7620

== ENCOUNTER → 2019-03-26 | Outpatient (CLI) | payer MEDICARE ==
[2019-03-26 11:06] LABS: ANION GAP 9 (5-19); BLOOD UREA NITROGEN 17 mg/dL (7-20); CARBON DIOXIDE 29 mmol/L (22-30); CHLORIDE 96 mmol/L (98-107); GLUCOSE 72 mg/dL (75-110); POTASSIUM 5.4 mmol/L (3.6-5.0); SODIUM 134.2 mmol/L (137-145)
== END ==
LOC: OD 09:52
PROVIDERS: ATTEND Internal Medicine Nephrology
DX: I12.9 Hypertensive chronic kidney disease with stage 1 through stage 4 chronic kidney disease, or unspecified chronic kidney disease (principal); N18.2 Chronic kidney disease, stage 2 (mild)
CPT/HCPCS: 36415; 80048

== ENCOUNTER → 2019-06-06 | Outpatient (CLI) | payer MEDICARE ==
[2019-06-06 09:24] LABS: HEMATOCRIT 37.2 % (36.0-47.0); HEMOGLOBIN 12.5 g/dL (12.0-15.5); MEAN CORPUSCULAR HEMOGLOBIN 29.7 pg (27.0-33.4); MEAN CORPUSCULAR HGB CONC 33.6 g/dL (32.0-36.0); MEAN CORPUSCULAR VOLUME 88 fl (80-97); PLATELET COUNT 179 10^3/uL (150-450); RED CELL DISTRIBUTION WIDTH 13.8 % (11.5-14.0); WHITE BLOOD COUNT 4.8 10^3/uL (4.0-10.5)
[2019-06-06 09:48] LABS: ALBUMIN 4.5 g/dL (3.5-5.0); ALKALINE PHOSPHATASE 89 U/L (38-126); ANION GAP 10 (5-19); ASPARTATE AMINO TRANSFERASE 26 U/L (14-36); BILIRUBIN,DIRECT 0.2 mg/dL (0.0-0.4); BILIRUBIN,TOTAL 0.4 mg/dL (0.2-1.3); BLOOD UREA NITROGEN 21 mg/dL (7-20); CALCIUM 9.4 mg/dL (8.4-10.2); CARBON DIOXIDE 27 mmol/L (22-30); CHLORIDE 97 mmol/L (98-107); CHOLESTEROL 150.49 mg/dL (0-200); GLUCOSE 73 mg/dL (75-110); POTASSIUM 5.4 mmol/L (3.6-5.0); TOTAL PROTEIN 6.9 g/dL (6.3-8.2); TRIGLYCERIDES 78 mg/dL (<150)
[2019-06-06 10:00] LABS: DIRECT LDL 79 mg/dL (<100)
== END ==
LOC: LAB 08:57
PROVIDERS: ATTEND Internal Medicine Cardiovascular Disease
DX: E78.00 Pure hypercholesterolemia, unspecified (principal); D64.9 Anemia, unspecified; E55.9 Vitamin D deficiency, unspecified; I10 Essential (primary) hypertension; Z79.899 Other long term (current) drug therapy
CPT/HCPCS: 36415; 80048; 80061; 80076; 82306; 85027

== ENCOUNTER → 2019-07-02 | Outpatient (CLI) | payer MEDICARE ==
[2019-07-02 10:39] LABS: ANION GAP 11 (5-19); BLOOD UREA NITROGEN 15 mg/dL (7-20); CALCIUM 9.4 mg/dL (8.4-10.2); CARBON DIOXIDE 24 mmol/L (22-30); CHLORIDE 102 mmol/L (98-107); GLUCOSE 88 mg/dL (75-110)
== END ==
LOC: LAB 09:53
PROVIDERS: ATTEND Internal Medicine Cardiovascular Disease
DX: E87.5 Hyperkalemia (principal)
CPT/HCPCS: 36415; 80048

== ENCOUNTER 2019-08-08 13:56 | Emergency (ER) | payer MEDICARE ==
--- NOTE | 2019-08-08 15:11 | ER Document Report ---
ED Medical Screen (RME) - General Chief Complaint: Abnormal Lab Results Stated Complaint: ABNORMAL LAB Time Seen by Provider: 08/08/19 15:09 Mode of Arrival: Ambulatory Information source: Patient Notes: 79-year-old female presented to ED for elevated potassium of 5.8. Her doctor Dr. Garcia sent her to the emergency room for treatment. She states the blood work was done at this hospital this morning. Patient is alert and oriented respirations regular nonlabored speaking in full sentences. Denies dialysis or diabetes. She does have a history of high blood pressure, high cholesterol, has coronary stents x2, and has 2 leaky valves. I have greeted and performed a rapid initial assessment of this patient. A comprehensive ED assessment and evaluation of the patient, analysis of test results and completion of medical decision making process will be conducted by an additional ED providers. TRAVEL OUTSIDE OF THE [place] IN LAST 30 DAYS: No - Related Data Allergies/Adverse Reactions: erythromycin base [Erythromycin Base] Allergy (Intermediate, Verified 02/19/17 13:35) Hives prednisone [Prednisone] Adverse Reaction (Intermediate, Verified 02/19/17 13:35) Hyperactivity Past Medical History - Past Medical History Cardiac Medical History: Reports: Hx Coronary Artery Disease, Hx Hypercholesterolemia - meds x 5 years, Hx Hypertension - meds x 10 years, Hx Heart Murmur Denies: Hx Atrial Fibrillation, Hx Congestive Heart Failure, Hx Heart Attack, Hx Peripheral Vascular Disease, Hx Pulmonary Embolism Pulmonary Medical History: Reports: Hx Bronchitis - multiple times, Hx Pneumonia - @ [facility] approx 2 years ago Denies: Hx Asthma, Hx COPD - ? lung disease on 1 yr for years, Hx Respiratory Failure, Hx Sleep Apnea, Hx Tuberculosis Neurological Medical History: Denies: Hx Cerebrovascular Accident, Hx Seizures, Hx Parkinson's Disease Renal/ Medical History: Denies: Hx End Stage Renal Disease, Hx Kidney Stones, Hx Ovarian Cysts, Hx Peritoneal Dialysis, Hx Pelvic Inflammatory Disease Malignancy Medical History: Reports: Hx Cervical Cancer - [facility] 1969 (cervical vs "uterine" ca). Denies: Hx Breast Cancer, Hx Leukemia, Hx Lung Cancer, Hx Ovarian Cancer GI Medical History: Reports: Hx Gastroesophageal Reflux Disease - meds x 10 years, Hx Ulcer - approx 15 years ago (tx'ed p.o. meds x 15 days). Denies: Hx Crohn's Disease, Hx Hepatitis, Hx Hiatal Hernia, Hx Irritable Bowel, Hx Liver Failure, Hx Pancreatitis Musculoskeltal Medical History: Reports Hx Arthritis, Denies Hx Fibromyalgia, Denies Hx Multiple Sclerosis, Denies Hx Muscular Dystrophy Psychiatric Medical History: Reports: Hx Depression - meds x 10 years Denies: Hx Bipolar Disorder, Hx Dementia, Hx Post Traumatic Stress Disorder, Hx Schizophrenia Traumatic Medical History: Denies: Hx Fractures Infectious Medical History: Denies: Hx Hepatitis, Hx HIV Past Surgical History: Reports: Hx Cardiac Surgery - stent, Hx Gynecologic Surgery - cervix x 3, Hx Hysterectomy, Hx Orthopedic Surgery - neck and rt foot, left knee. Denies: Hx Appendectomy, Hx Bowel Surgery, Hx Section, Hx Cholecystectomy, Hx Colostomy, Hx Coronary Artery Bypass Graft, Hx Gastric Bypass Surgery, Hx Herniorrhaphy, Hx Mastectomy, Hx Open Heart Surgery, Hx Pacemaker, Hx Tonsillectomy, Hx Tubal Ligation - Immunizations Hx Diphtheria, Pertussis, Tetanus Vaccination: Yes Physical Exam - Vital signs Vitals: Temp Pulse Resp BP Pulse Ox 97.7 F 55 L 16 121/48 L 96 08/08/19 14:29 08/08/19 14:29 08/08/19 14:29 08/08/19 14:29 08/08/19 14:29 Course - Vital Signs Vital signs: Temp Pulse Resp BP Pulse Ox 97.7 F 55 L 16 121/48 L 96 08/08/19 14:29 08/08/19 14:29 08/08/19 14:29 08/08/19 14:29 08/08/19 14:29
[2019-08-08] MEDS ORDERED: NORMAL SALINE 1000 ML 1,000 ML IV ONE (15:12)
[2019-08-08 16:05] LABS: ABSOLUTE EOSINOPHILS # (AUTO) 0.1 10^3/uL (0.0-0.6); ABSOLUTE LYMPHOCYTES (AUTO) 1.1 10^3/uL (0.5-4.7); ABSOLUTE MONOCYTES (AUTO) 0.5 10^3/uL (0.1-1.4); ABSOLUTE NEUT (AUTO) 3.8 10^3/uL (1.7-8.2); BASOPHILS % (AUTO) 0.2 % (0-2); EOSINOPHILS % (AUTO) 1.2 % (0-6); HEMATOCRIT 37.1 % (36.0-47.0); HEMOGLOBIN 12.3 g/dL (12.0-15.5); LYMPHOCYTES % (AUTO) 19.8 % (13-45); MEAN CORPUSCULAR HEMOGLOBIN 29.7 pg (27.0-33.4); MEAN CORPUSCULAR HGB CONC 33.3 g/dL (32.0-36.0); MEAN CORPUSCULAR VOLUME 89 fl (80-97); MONOCYTES % (AUTO) 8.8 % (3-13); PLATELET COUNT 161 10^3/uL (150-450); RED BLOOD COUNT 4.15 10^6/uL (3.72-5.28); TOTAL CELLS COUNTED % (AUTO) 100 %; WHITE BLOOD COUNT 5.4 10^3/uL (4.0-10.5)
[2019-08-08 16:32] LABS: ALBUMIN 4.6 g/dL (3.5-5.0); ALKALINE PHOSPHATASE 114 U/L (38-126); ANION GAP 9 (5-19); ASPARTATE AMINO TRANSFERASE 37 U/L (14-36); BILIRUBIN,DIRECT 0.1 mg/dL (0.0-0.4); BILIRUBIN,TOTAL 0.3 mg/dL (0.2-1.3); BLOOD UREA NITROGEN 25 mg/dL (7-20); CALCIUM 9.3 mg/dL (8.4-10.2); CARBON DIOXIDE 27 mmol/L (22-30); CHLORIDE 102 mmol/L (98-107); GLUCOSE 94 mg/dL (75-110); POTASSIUM 5.2 mmol/L (3.6-5.0); TOTAL PROTEIN 7.5 g/dL (6.3-8.2)
[2019-08-08 17:16] LABS: APPEARANCE,URINE CLEAR; BILIRUBIN,URINE NEGATIVE (NEGATIVE); COLOR,URINE YELLOW; GLUCOSE, URINE NEGATIVE (NEGATIVE); KETONES,URINE NEGATIVE (NEGATIVE); LEUKOCYTE ESTERASE,URINE NEGATIVE (NEGATIVE); NITRITE,URINE NEGATIVE (NEGATIVE); PROTEIN,URINE NEGATIVE (NEGATIVE); URINE SPECIFIC GRAVITY 1.016; UROBILINOGEN,URINE NEGATIVE mg/dL (<2.0)
[2019-08-08] MEDS ORDERED: NIFEDIPINE 30 MG TAB.ER.24 PO ONE (19:38)
[2019-08-08] MEDS ORDERED: LISINOPRIL 10 MG TABLET PO ONE (19:38)
[2019-08-08] MEDS ORDERED: CLONIDINE HCL 0.1 MG TABLET PO ONE (19:39)
--- NOTE | 2019-08-08 21:30 | ER Document Report ---
ED General - General Chief Complaint: Abnormal Lab Results Stated Complaint: ABNORMAL LAB Time Seen by Provider: 08/08/19 15:09 Primary Care Provider: JULY LORENZ PA-C [Primary Care Provider] - Follow up as needed Mode of Arrival: Ambulatory TRAVEL OUTSIDE OF THE [place] IN LAST 30 DAYS: No - HPI Onset: Just prior to arrival Onset/Duration: denies: Sudden, Gradual, Constant, Intermittent, Persistent, Waxing and waning, Better, Worse, Gone Quality of pain: denies: No pain, Achy, Burning, Cramping, Dull, Fullness, Pressure, Sharp, Stabbing, Throbbing, Other Severity: None Pain Level: Denies Associated symptoms: None. denies: Allergy/hay fever, Body/muscle aches, Chest pain, Chills, Nonproductive cough, Productive cough, Diarrhea, Drooling, Earache, Fever, Headache, Hoarseness, Hurts to breath, Leg swelling, Nausea, Vomiting, Rhinnorhea, Sinus pain/drainage, Shortness of breath, Slow to respond, Sore throat, Sweating, Weakness, Other Exacerbated by: denies: Denies, Supine, Sitting, Standing, Movement, Walking, Coughing, Deep breathing, Food, Other Relieved by: denies: Denies, Supine, Sitting, Standing, Remaining still, Antacids, Food, Other Notes: Note patient is a 79-year-old well-appearing female who was sent in by her regular doctor for apparently routine labs of a potassium of 5.8. Apparently this was not rechecked for hemolysis and she was sent in the emergency department for evaluation. She denies any complaints - Related Data Allergies/Adverse Reactions: erythromycin base [Erythromycin Base] Allergy (Intermediate, Verified 02/19/17 13:35) Hives prednisone [Prednisone] Adverse Reaction (Intermediate, Verified 02/19/17 13:35) Hyperactivity Past Medical History - General Information source: Patient - Social History Smoking Status: Never Smoker Frequency of alcohol use: None Drug Abuse: None Family History: Reviewed & Not Pertinent Patient has suicidal ideation: No Patient has homicidal ideation: No - Past Medical History Cardiac Medical History: Reports: Hx Coronary Artery Disease, Hx Hypercholesterolemia - meds x 5 years, Hx Hypertension - meds x 10 years, Hx Heart Murmur Denies: Hx Atrial Fibrillation, Hx Congestive Heart Failure, Hx Heart Attack, Hx Peripheral Vascular Disease, Hx Pulmonary Embolism Pulmonary Medical History: Reports: Hx Bronchitis - multiple times, Hx Pneumonia - @ [facility] approx 2 years ago Denies: Hx Asthma, Hx COPD - ? lung disease on 1 yr for years, Hx Respiratory Failure, Hx Sleep Apnea, Hx Tuberculosis Neurological Medical History: Denies: Hx Cerebrovascular Accident, Hx Seizures, Hx Parkinson's Disease Renal/ Medical History: Denies: Hx End Stage Renal Disease, Hx Kidney Stones, Hx Ovarian Cysts, Hx Peritoneal Dialysis, Hx Pelvic Inflammatory Disease Malignancy Medical History: Reports: Hx Cervical Cancer - [facility] 1969 (cervical vs "uterine" ca). Denies: Hx Breast Cancer, Hx Leukemia, Hx Lung Cancer, Hx Ovarian Cancer GI Medical History: Reports: Hx Gastroesophageal Reflux Disease - meds x 10 years, Hx Ulcer - approx 15 years ago (tx'ed p.o. meds x 15 days). Denies: Hx Crohn's Disease, Hx Hepatitis, Hx Hiatal Hernia, Hx Irritable Bowel, Hx Liver Failure, Hx Pancreatitis Musculoskeletal Medical History: Reports Hx Arthritis, Denies Hx Fibromyalgia, Denies Hx Multiple Sclerosis, Denies Hx Muscular Dystrophy Psychiatric Medical History: Reports: Hx Depression - meds x 10 years Denies: Hx Bipolar Disorder, Hx Dementia, Hx Post Traumatic Stress Disorder, Hx Schizophrenia Traumatic Medical History: Denies: Hx Fractures Infectious Medical History: Denies: Hx Hepatitis, Hx HIV Past Surgical History: Reports: Hx Cardiac Surgery - stent, Hx Gynecologic Surgery - cervix x 3, Hx Hysterectomy, Hx Orthopedic Surgery - neck and rt foot, left knee. Denies: Hx Appendectomy, Hx Bowel Surgery, Hx Section, Hx Cholecystectomy, Hx Colostomy, Hx Coronary Artery Bypass Graft, Hx Gastric Bypass Surgery, Hx Herniorrhaphy, Hx Mastectomy, Hx Open Heart Surgery, Hx Pacemaker, Hx Tonsillectomy, Hx Tubal Ligation - Immunizations Hx Diphtheria, Pertussis, Tetanus Vaccination: Yes Hx Pneumococcal Vaccination: 10/23/13 Review of Systems - Review of Systems Constitutional: denies: No symptoms reported, See HPI, Chills, Diaphoresis, Fever, Malaise, Weakness, Other, Weight gain, Weight loss, Recent illness EENT: denies: No symptoms reported, See HPI, Eye pain, Eye discharge, Blurred vision, Tearing, Double vision, Ear pain, Ear discharge, Nose pain, Nose congestion, Nose discharge, Sinus pressure, Sinus discharge, Throat pain, Difficulty swallowing, Throat swelling, Mouth pain, Mouth swelling, Dental problem, Vertigo, Other Cardiovascular: denies: No symptoms reported, See HPI, Chest pain, Palpitations, Heart racing, Orthopnea, Dyspnea, Syncope, Dizziness, Lightheaded, Edema, Other, Paroxysmal Nocturnal Dysp Respiratory: denies: No symptoms reported, See HPI, Cough, Hurts to breathe, Hemoptysis, Short of breath, Sputum, Stridor, Wheezing, Other Gastrointestinal: denies: No symptoms reported, See HPI, Abdomen distended, Abdominal pain, Diarrhea, Nausea, Vomiting, Constipation, Blood streaked bowels, Poor appetite, Poor fluid intake, Blood in vomit, Black stools, Rectal bleeding, Last bowel movement, Fecal incontinence, Other Genitourinary: denies: No symptoms reported, See HPI, Burning, Dysuria, Discharge, Frequency, Flank pain, Hematuria, Incontinence, Pain, Urgency, Retention, Other Female Genitourinary: denies: No symptoms reported, See HPI, Last menstrual period, , Post menopausal, Heavy/abnormal periods, Irregular period, Vaginal bleeding, Vaginal discharge, Vaginal odor, Painful intercourse, Other Musculoskeletal: denies: No symptoms reported, See HPI, Back pain, Gout, Joint pain, Joint swelling, Muscle pain, Muscle stiffness, Neck pain, Deformity, Leg swelling, Ankle swelling, Other Skin: denies: No symptoms reported, See HPI, Change in color, Change in hair/nails, Dryness, Lesions, Lumps, Rash, Other Neurological/Psychological: denies: No symptoms reported, See HPI, Confusion, Dementia, Depression, Hallucinations, Anxiety, Homicidal ideation, Sensory change, Weakness, Gait changes, Loss of power, Paralysis, Seizure, Lost consciousness, Headaches, Speech impairment, Numbness, Suicidal ideation, Ting ling, Tremor, Other -: Yes All other systems reviewed and negative Physical Exam - Vital signs Vitals: Temp Pulse Resp BP Pulse Ox 97.7 F 55 L 16 121/48 L 96 08/08/19 14:29 08/08/19 14:29 08/08/19 14:29 08/08/19 14:29 08/08/19 14:29 Notes: PHYSICAL EXAMINATION: GENERAL: Well-appearing, well-nourished and in no acute distress. HEAD: Atraumatic, normocephalic. EYES: Pupils equal round and reactive to light, extraocular movements intact, sclera anicteric, conjunctiva are normal. ENT: nares patent, oropharynx clear without exudates. Moist mucous membranes. NECK: Normal range of motion, supple without lymphadenopathy LUNGS: Breath sounds clear to auscultation bilaterally and equal. No wheezes rales or rhonchi. HEART: Regular rate and rhythm without murmurs ABDOMEN: Soft, nontender, normoactive bowel sounds. No guarding, no rebound. No masses appreciated. EXTREMITIES: Normal range of motion, no pitting or edema. No cyanosis. NEUROLOGICAL: No focal neurological deficits. Moves all extremities spontaneously and on command. PSYCH: Normal mood, normal affect. SKIN: Warm, Dry, normal turgor, no rashes or lesions noted. Course - Vital Signs Vital signs: Temp Pulse Resp BP Pulse Ox 97.7 F 55 L 12 171/52 H 94 08/08/19 14:29 08/08/19 14:29 08/08/19 21:01 08/08/19 21:01 08/08/19 21:01 - Laboratory Result Diagrams: 08/08/19 15:50 08/08/19 15:50 Laboratory results interpreted by me: 08/08/19 08/08/19 15:50 15:50 Potassium 5.2 H BUN 25 H Est GFR (MDRD) Non-Af 51 L AST 37 H Urine Ascorbic Acid 40 H - EKG Interpretation by Ak EKG shows normal: Sinus rhythm Rate: Normal Rhythm: NSR When compared to previous EKG there are: No significant change Additional EKG results interpreted by me: 08/08/19 21:32 EKG does show some lateral nonspecific T wave changes. Otherwise no significant change from previous EKG - Transfer of Care Notes: 08/08/19 21:33 Patient is asymptomatic I believe that this was probably due to lab error of hemolysis with a potassium here only being 5.2 and her creatinine only being just barely over 1.0 she may be a little dehydrated I told her to drink a lot of fluids and follow-up with her regular doctor. Discharge - Discharge Clinical Impression: Hyperkalemia, lab error Condition: Stable Disposition: HOME, SELF-CARE Instructions: Dehydration ([facility]) Additional Instructions: Follow-up with your regular doctor less than know that your potassium was 5.2 and your creatinine was normal limits that this most likely was due to a lab error. Return if any worse such as chest pain shortness of breath or condition worsens. Use fluids in your diet as discussed. Referrals: JULY LORENZ PA-C [Primary Care Provider] - Follow up as needed
[2019-08-08 22:16] VITALS: BP 170/50
--- NOTE | 2019-08-09 07:20 | EKG REPORT ---
SEVERITY:- ABNORMAL ECG - SINUS RHYTHM ATRIAL PREMATURE COMPLEX FIRST DEGREE AV BLOCK LEFT ANTERIOR FASCICULAR BLOCK LEFT VENTRICULAR HYPERTROPHY ABNORMAL T, CONSIDER ISCHEMIA, INFERIOR LEADS : Confirmed by: Medina Sanders 09-Aug-2019 07:19:29
== END 2019-08-08 22:25 | disposition home or self-care (01) ==
LOC: ER 13:56
DX: E87.5 Hyperkalemia (principal); Z90.710 Acquired absence of both cervix and uterus; Z88.3 Allergy status to other anti-infective agents
CPT/HCPCS: 36415; 85025; 87070; 81001; A9270 ×3; J7030; 93005; 93010

== ENCOUNTER → 2019-08-08 | Outpatient (CLI) | payer MEDICARE ==
[2019-08-08 10:07] LABS: ANION GAP 11 (5-19); BLOOD UREA NITROGEN 23 mg/dL (7-20); CALCIUM 9.6 mg/dL (8.4-10.2); CARBON DIOXIDE 26 mmol/L (22-30); CHLORIDE 101 mmol/L (98-107); GLUCOSE 90 mg/dL (75-110); POTASSIUM 5.8 mmol/L (3.6-5.0)
== END ==
LOC: LAB 09:17
PROVIDERS: ATTEND Internal Medicine Cardiovascular Disease
DX: E87.5 Hyperkalemia (principal); I12.9 Hypertensive chronic kidney disease with stage 1 through stage 4 chronic kidney disease, or unspecified chronic kidney disease; N18.3 Chronic kidney disease, stage 3 (moderate); Z79.899 Other long term (current) drug therapy
CPT/HCPCS: 36415; 80048

== ENCOUNTER → 2019-08-15 | Outpatient (CLI) | payer MEDICARE ==
[2019-08-15 09:16] LABS: ANION GAP 12 (5-19); BLOOD UREA NITROGEN 17 mg/dL (7-20); CARBON DIOXIDE 25 mmol/L (22-30); CHLORIDE 101 mmol/L (98-107); GLUCOSE 78 mg/dL (75-110); POTASSIUM 5.4 mmol/L (3.6-5.0)
== END ==
LOC: LAB 08:27
PROVIDERS: ATTEND Internal Medicine Cardiovascular Disease
DX: N18.3 Chronic kidney disease, stage 3 (moderate) (principal); E87.5 Hyperkalemia
CPT/HCPCS: 36415; 80048

== ENCOUNTER → 2019-09-05 | Outpatient (CLI) | payer MEDICARE ==
[2019-09-05 09:24] LABS: APPEARANCE,URINE CLEAR; BILIRUBIN,URINE NEGATIVE (NEGATIVE); COLOR,URINE YELLOW; GLUCOSE, URINE NEGATIVE (NEGATIVE); KETONES,URINE NEGATIVE (NEGATIVE); LEUKOCYTE ESTERASE,URINE SMALL (NEGATIVE); NITRITE,URINE NEGATIVE (NEGATIVE); PROTEIN,URINE NEGATIVE (NEGATIVE); URINE SPECIFIC GRAVITY 1.019; UROBILINOGEN,URINE NEGATIVE mg/dL (<2.0)
[2019-09-05 09:55] LABS: ANION GAP 13 (5-19); BLOOD UREA NITROGEN 26 mg/dL (7-20); CALCIUM 9.7 mg/dL (8.4-10.2); CARBON DIOXIDE 26 mmol/L (22-30); CHLORIDE 103 mmol/L (98-107); GLUCOSE 84 mg/dL (75-110); POTASSIUM 5.2 mmol/L (3.6-5.0)
[2019-09-06 13:37] LABS: CREATININE URINE 171.4 mg/dL (Not Estab.); MICROALBUMIN URINE 6.8 ug/mL (Not Estab.)
== END ==
LOC: OD 08:48
PROVIDERS: ATTEND Internal Medicine Nephrology
DX: I12.9 Hypertensive chronic kidney disease with stage 1 through stage 4 chronic kidney disease, or unspecified chronic kidney disease (principal); N18.2 Chronic kidney disease, stage 2 (mild)
CPT/HCPCS: 36415; 80048; 81001; 82043; 82570

== ENCOUNTER → 2019-09-10 | Outpatient (CLI) | payer MEDICARE ==
--- NOTE | 2019-09-10 09:14 | WOMENS IMAGING REPORT ---
EXAM DESCRIPTION: 3D SCREENING MAMMO BILAT COMPLETED DATE/TIME: 09/10/2019 8:42 am REASON FOR STUDY: Z12.31 SCREENING MAMMO Z12.31 ENCNTR SCREEN MAMMOGRAM FOR MALIGNANT NEOPLASM OF B RE COMPARISON: Multiple since 2008 EXAM PARAMETERS: Views: Standard craniocaudal and mediolateral oblique views of each breast recorded using digital acquisition and breast tomosynthesis. Read with the assistance of CAD. .[facility] - [facility] Corporate Account Director Version 9.2 LIMITATIONS: None. FINDINGS: No suspicious masses, suspicious calcifications or architectural distortion. No areas of c oncern. IMPRESSION: NEGATIVE MAMMOGRAM. BIRADS 1. BREAST DENSITY: c. The breasts are heterogeneously dense, which may obscure small masses. BIRAD: ASSESSMENT: 1 NEGATIVE RECOMMENDATION: ROUTINE SCREENING Please continue yearly bilateral screening mammography/tomosynthesis in August 2020 COMMENT: The patient has been notified of the results by letter per MQSA requirements. Additional no tification policies are in place for contacting patient with suspicious or incomplete findings. Quality ID #[id number]: The [employer] recommends an annual screening mammogram for women aged 40 years or over. This facility utilizes a reminder system to ensure that all patients receive reminder letters, and/or direct phone calls for appointments. This includes reminders for routine scr eening mammograms, diagnostic mammograms, or other Breast Imaging Interventions when appropriate. Th is patient will be placed in the appropriate reminder system. TECHNICAL DOCUMENTATION: FINDING NUMBER: (1) ASSESSMENT: (1) JOB ID: [id number] [employer]- All Rights Reserved Reading location - IP/workstation name: [email or web address]
== END ==
LOC: WI 08:10
PROVIDERS: ATTEND Physician Assistant
DX: Z12.31 Encounter for screening mammogram for malignant neoplasm of breast (principal)
CPT/HCPCS: 77063; 77067

== ENCOUNTER → 2019-10-03 | Outpatient (CLI) | payer MEDICARE ==
[2019-10-03 10:48] LABS: ANION GAP 11 (5-19); BLOOD UREA NITROGEN 25 mg/dL (7-20); CALCIUM 9.3 mg/dL (8.4-10.2); CARBON DIOXIDE 25 mmol/L (22-30); CHLORIDE 104 mmol/L (98-107); GLUCOSE 95 mg/dL (75-110); POTASSIUM 5.1 mmol/L (3.6-5.0)
== END ==
LOC: LAB 10:03
PROVIDERS: ATTEND Internal Medicine Cardiovascular Disease
DX: E87.5 Hyperkalemia (principal); N18.3 Chronic kidney disease, stage 3 (moderate)
CPT/HCPCS: 36415; 80048

== ENCOUNTER 2019-11-25 12:14 | Inpatient (IN) | payer MEDICARE ==
--- NOTE | 2019-11-25 13:06 | ER Document Report ---
ED Medical Screen (RME) - General Chief Complaint: Shortness Of Breath Stated Complaint: LOW OXYGEN LEVEL/SHORTNESS OF BREATH Time Seen by Provider: 11/25/19 13:02 Primary Care Provider: JULY LORENZ PA-C [Primary Care Provider] - Follow up as needed Mode of Arrival: Ambulatory Information source: Patient Notes: 79-year-old female presents to ED for cough cold congestion short of breath. She states she is fatigued and weak. Her O2 sat is 91 on room air pulse rate is 54. states she just started the shortness of breath this weekend. She states she has a lung disease and has been done remember the name of it she is got a lung doctor Dr. Macedo and Fabian. She is not on oxygen at home. Her cough is nonproductive denies any fevers. Patient is alert and oriented hard of hearing. She does have a cough. We will get blood urine chest x-ray and have her examined. She states her chest feels like it is going to burst and she is short of breath from coughing so much I have greeted and performed a rapid initial assessment of this patient. A comprehensive ED assessment and evaluation of the patient, analysis of test results and completion of medical decision making process will be conducted by an additional ED providers. TRAVEL OUTSIDE OF THE [place] IN LAST 30 DAYS: No - Related Data Allergies/Adverse Reactions: erythromycin base [Erythromycin Base] Allergy (Intermediate, Verified 02/19/17 13:35) Hives prednisone [Prednisone] Adverse Reaction (Intermediate, Verified 02/19/17 13:35) Hyperactivity Past Medical History - Past Medical History Cardiac Medical History: Reports: Hx Coronary Artery Disease, Hx Hypercholesterolemia - meds x 5 years, Hx Hypertension - meds x 10 years, Hx Heart Murmur Denies: Hx Atrial Fibrillation, Hx Congestive Heart Failure, Hx Heart Attack, Hx Peripheral Vascular Disease, Hx Pulmonary Embolism Pulmonary Medical History: Reports: Hx Bronchitis - multiple times, Hx Pneumonia - @ [facility] approx 2 years ago Denies: Hx Asthma, Hx COPD - ? lung disease on 1 yr for years, Hx Respiratory Failure, Hx Sleep Apnea, Hx Tuberculosis Neurological Medical History: Denies: Hx Cerebrovascular Accident, Hx Seizures, Hx Parkinson's Disease Renal/ Medical History: Denies: Hx End Stage Renal Disease, Hx Kidney Stones, Hx Ovarian Cysts, Hx Peritoneal Dialysis, Hx Pelvic Inflammatory Disease Malignancy Medical History: Reports: Hx Cervical Cancer - [facility] 1969 (cervical vs "uterine" ca). Denies: Hx Breast Cancer, Hx Leukemia, Hx Lung Cancer, Hx Ovarian Cancer GI Medical History: Reports: Hx Gastroesophageal Reflux Disease - meds x 10 years, Hx Ulcer - approx 15 years ago (tx'ed p.o. meds x 15 days). Denies: Hx Crohn's Disease, Hx Hepatitis, Hx Hiatal Hernia, Hx Irritable Bowel, Hx Liver Failure, Hx Pancreatitis Musculoskeltal Medical History: Reports Hx Arthritis, Denies Hx Fibromyalgia, Denies Hx Multiple Sclerosis, Denies Hx Muscular Dystrophy Psychiatric Medical History: Reports: Hx Depression - meds x 10 years Denies: Hx Bipolar Disorder, Hx Dementia, Hx Post Traumatic Stress Disorder, Hx Schizophrenia Traumatic Medical History: Denies: Hx Fractures Infectious Medical History: Denies: Hx Hepatitis, Hx HIV Past Surgical History: Reports: Hx Cardiac Surgery - stent, Hx Gynecologic Surgery - cervix x 3, Hx Hysterectomy, Hx Orthopedic Surgery - neck and rt foot, left knee. Denies: Hx Appendectomy, Hx Bowel Surgery, Hx Section, Hx Cholecystectomy, Hx Colostomy, Hx Coronary Artery Bypass Graft, Hx Gastric Bypass Surgery, Hx Herniorrhaphy, Hx Mastectomy, Hx Open Heart Surgery, Hx Pacemaker, Hx Tonsillectomy, Hx Tubal Ligation - Immunizations Hx Diphtheria, Pertussis, Tetanus Vaccination: Yes Physical Exam - Vital signs Vitals: Temp Pulse Resp BP Pulse Ox 98.3 F 58 L 20 115/55 L 91 L 11/25/19 12:58 11/25/19 12:58 11/25/19 12:58 11/25/19 12:58 11/25/19 12:58 Course - Vital Signs Vital signs: Temp Pulse Resp BP Pulse Ox 98.3 F 58 L 20 115/55 L 91 L 11/25/19 12:58 11/25/19 12:58 11/25/19 12:58 11/25/19 12:58 11/25/19 12:58 Doctor's Discharge - Discharge Referrals: JULY LORENZ PA-C [Primary Care Provider] - Follow up as needed
[2019-11-25] MEDS ORDERED: ASPIRIN 81 MG TABLET, CHEWABLE PO ONE (13:07)
[2019-11-25] MEDS ORDERED: NORMAL SALINE 500 ML IV ONE ×2 (13:09→14:06)
--- NOTE | 2019-11-25 13:35 | RADIOLOGY REPORT (SQ) ---
EXAM DESCRIPTION: CHEST 2 VIEWS COMPLETED DATE/TIME: 11/25/2019 1:25 pm REASON FOR STUDY: Chest pain shortness of breath COMPARISON: Chest films 02/12/2019, 11/14/2017, 10/20/2017 EXAM PARAMETERS: NUMBER OF VIEWS: two views TECHNIQUE: Digital Frontal and Lateral radiographic views of the chest acquired. RADIATION DOSE: NA LIMITATIONS: none FINDINGS: LUNGS AND PLEURA: Dense consolidation in the right middle lobe from pneumonia. Minimal pa tchy right lower lobe airspace disease worrisome for early or developing pneumonia. No significant right pleural effusion. No focal left-sided infiltrates or pleural effusion. No right or left pneumothorax MEDIASTINUM AND HILAR STRUCTURES: No masses or contour abnormalities. HEART AND VASCULAR STRUCTURES: Heart normal size. No evidence for failure. BONES: Convex leftward lower thoracic curvature HARDWARE: None in the chest. Cervical fusion hardware with corpectomies and dorsal fixation plates OTHER: No other significant finding. IMPRESSION: Right middle lobe pneumonia Early or developing right lower lobe pneumonia No right pleural effusion or pneumothorax. TECHNICAL DOCUMENTATION: JOB ID: [id number] [employer]- All Rights Reserved Reading location - IP/workstation name: [email or web address]
[2019-11-25] MEDS ORDERED: PIPERACILLIN/TAZOBACTAM 4.5 GM VIAL IV ONE (14:04)
[2019-11-25] MEDS ORDERED: VANCOMYCIN HCL INJ 1000 MG VIAL IV ONE (14:05)
[2019-11-25 14:28] LABS: ABSOLUTE LYMPHOCYTES (AUTO) 0.6 10^3/uL (0.5-4.7); ABSOLUTE MONOCYTES (AUTO) 0.6 10^3/uL (0.1-1.4); ABSOLUTE NEUT (AUTO) 3.8 10^3/uL (1.7-8.2); BASOPHILS % (AUTO) 0.2 % (0-2); HEMATOCRIT 37.7 % (36.0-47.0); HEMOGLOBIN 12.6 g/dL (12.0-15.5); LYMPHOCYTES % (AUTO) 12.6 % (13-45); MEAN CORPUSCULAR HGB CONC 33.3 g/dL (32.0-36.0); MEAN CORPUSCULAR VOLUME 90 fl (80-97); PLATELET COUNT 116 10^3/uL (150-450); RED BLOOD COUNT 4.19 10^6/uL (3.72-5.28); RED CELL DISTRIBUTION WIDTH 14.1 % (11.5-14.0); SEGMENTED NEUTROPHILS % (AUTO) 76.2 % (42-78); TOTAL CELLS COUNTED % (AUTO) 100 %
[2019-11-25 14:35] LABS: INTERNATIONAL RATION (INR) 1.11; PARTIAL THROMBOPLASTIN TIME 32.9 SEC (23.5-35.8); PROTHROMBIN TIME 14.3 SEC (11.4-15.4)
[2019-11-25 14:49] LABS: ALBUMIN 3.9 g/dL (3.5-5.0); ALKALINE PHOSPHATASE 80 U/L (38-126); ANION GAP 11 (5-19); ASPARTATE AMINO TRANSFERASE 38 U/L (14-36); BILIRUBIN,DIRECT 0.3 mg/dL (0.0-0.4); BILIRUBIN,TOTAL 0.4 mg/dL (0.2-1.3); BLOOD UREA NITROGEN 19 mg/dL (7-20); CALCIUM 8.4 mg/dL (8.4-10.2); CARBON DIOXIDE 26 mmol/L (22-30); CHLORIDE 92 mmol/L (98-107); GLUCOSE 114 mg/dL (75-110); POTASSIUM 4.5 mmol/L (3.6-5.0); TOTAL PROTEIN 6.6 g/dL (6.3-8.2)
[2019-11-25 15:01] LABS: TROPONIN I 0.031 ng/mL
[2019-11-25] MEDS ORDERED: FUROSEMIDE INJ/PF 40 MG/4 ML SDV IV ONE (15:08)
[2019-11-25] MEDS ORDERED: NITROGLYCERIN 2% OINTMENT 1 GM PACKET TP ONE (15:09)
--- NOTE | 2019-11-25 15:14 | EKG REPORT ---
SEVERITY:- ABNORMAL ECG - SINUS RHYTHM LVH WITH IVCD, LAD AND SECONDARY REPOL ABNRM CANNOT EXCLUDE DIFFUSE SUBENDOCARDIAL ISCHEMIA : Confirmed by: Rhiannon Reinoso MD 25-Nov-2019 15:13:59
--- NOTE | 2019-11-25 16:22 | ER Document Report ---
Entered by DELONTE CHI SCRIBE 11/25/19 1408 Acting as scribe for:CECILIO DAWKINS MD ED Respiratory Problem - General Chief Complaint: Shortness Of Breath Stated Complaint: LOW OXYGEN LEVEL/SHORTNESS OF BREATH Time Seen by Provider: 11/25/19 13:02 Primary Care Provider: JULY LORENZ PA-C [Primary Care Provider] - Follow up as needed Mode of Arrival: Ambulatory TRAVEL OUTSIDE OF THE [place] IN LAST 30 DAYS: No - Related Data Allergies/Adverse Reactions: No Known Allergies Allergy (Verified 11/25/19 13:04) Past Medical History - General Information source: Patient - Social History Smoking Status: Former Smoker Family History: Reviewed & Not Pertinent Patient has suicidal ideation: No Patient has homicidal ideation: No - Past Medical History Cardiac Medical History: Reports: Hx Coronary Artery Disease, Hx Hypercholesterolemia - meds x 5 years, Hx Hypertension - meds x 10 years, Hx Heart Murmur Denies: Hx Atrial Fibrillation, Hx Congestive Heart Failure, Hx Heart Attack, Hx Peripheral Vascular Disease, Hx Pulmonary Embolism Pulmonary Medical History: Reports: Hx Bronchitis - multiple times, Hx Pneumonia - @ [facility] approx 2 years ago Denies: Hx Asthma, Hx COPD - ? lung disease on 1 yr for years, Hx Respiratory Failure, Hx Sleep Apnea, Hx Tuberculosis Neurological Medical History: Denies: Hx Cerebrovascular Accident, Hx Seizures, Hx Parkinson's Disease Renal/ Medical History: Denies: Hx End Stage Renal Disease, Hx Kidney Stones, Hx Ovarian Cysts, Hx Peritoneal Dialysis, Hx Pelvic Inflammatory Disease Malignancy Medical History: Reports: Hx Cervical Cancer - [facility] 1969 (cervical vs "uterine" ca). Denies: Hx Breast Cancer, Hx Leukemia, Hx Lung Cancer, Hx Ovarian Cancer GI Medical History: Reports: Hx Gastroesophageal Reflux Disease - meds x 10 years, Hx Ulcer - approx 15 years ago (tx'ed p.o. meds x 15 days). Denies: Hx Crohn's Disease, Hx Hepatitis, Hx Hiatal Hernia, Hx Irritable Bowel, Hx Liver Failure, Hx Pancreatitis Musculoskeletal Medical History: Reports Hx Arthritis, Denies Hx Fibromyalgia, Denies Hx Multiple Sclerosis, Denies Hx Muscular Dystrophy Psychiatric Medical History: Reports: Hx Depression - meds x 10 years Denies: Hx Bipolar Disorder, Hx Dementia, Hx Post Traumatic Stress Disorder, Hx Schizophrenia Traumatic Medical History: Denies: Hx Fractures Infectious Medical History: Denies: Hx Hepatitis, Hx HIV Past Surgical History: Reports: Hx Cardiac Surgery - stent, Hx Gynecologic Surgery - cervix x 3, Hx Hysterectomy, Hx Orthopedic Surgery - neck and rt foot, left knee. Denies: Hx Appendectomy, Hx Bowel Surgery, Hx Section, Hx Cholecystectomy, Hx Colostomy, Hx Coronary Artery Bypass Graft, Hx Gastric Bypass Surgery, Hx Herniorrhaphy, Hx Mastectomy, Hx Open Heart Surgery, Hx Pacemaker, Hx Tonsillectomy, Hx Tubal Ligation - Immunizations Hx Diphtheria, Pertussis, Tetanus Vaccination: Yes Hx Pneumococcal Vaccination: 10/23/13 Physical Exam - Vital signs Vitals: Temp Pulse Resp BP Pulse Ox 98.3 F 58 L 20 115/55 L 91 L 11/25/19 12:58 11/25/19 12:58 11/25/19 12:58 11/25/19 12:58 11/25/19 12:58 Course - Re-evaluation Re-evalutation: 11/25/19 15:38 Patient is resting comfortably now with a sat of 96% on 2 L nasal O2 again she continues to deny any chest discomfort at all. Patient has been given 4 baby aspirin on arrival to the emergency department. Patient was treated for pneumonia with blood cultures and IV antibiotics once labs were were determined and resulted showed that the BNP was 7000 and with that result I decided the patient did not need to receive a full loading dose of normal saline as though we were treating sepsis but that we need to be conservative and treat patient with some Lasix and Nitropaste to try to decrease her preload. Case was discussed with Dr. Araiza who will admit patient to telemetry bed hospital. - Vital Signs Vital signs: Temp Pulse Resp BP Pulse Ox 98.3 F 58 L 17 155/57 H 97 11/25/19 12:58 11/25/19 12:58 11/25/19 16:01 11/25/19 16:01 11/25/19 16:01 - Laboratory Result Diagrams: 11/25/19 14:08 11/25/19 14:08 Laboratory results interpreted by me: 11/25/19 11/25/19 11/25/19 14:08 14:08 14:08 RDW 14.1 H Plt Count 116 L Lymph % (Auto) 12.6 L Sodium 129.3 L Chloride 92 L Glucose 114 H AST 38 H NT-Pro-B Natriuret Pep 7000 H - Diagnostic Test Radiology reviewed: Image reviewed, Reports reviewed Radiology results interpreted by me: 11/25/19 15:36 Radiology report infiltrates in both right middle lobe and right lower lobe perhaps pneumonia. - EKG Interpretation by Me Additional EKG results interpreted by me: 11/25/19 15:37 Twelve-lead EKG on 1331 shows a sinus bradycardia rate of 51 LVH with some intraventricular conduction delay and left axis deviation and secondary repull abnormalities. In comparison to EKG on 08/08/2019 patient's T wave inversions are deeper today than prior study. Discharge - Discharge Clinical Impression: Congestive heart failure, Infiltrate of right lung present on chest x-ray, Elevated troponin I level, Hyponatremia, Bronchospasm, acute Condition: Fair Disposition: ADMITTED INPATIENT Admitting Provider: Kelly (Hospitalist) Unit Admitted: Telemetry Referrals: JULY LORENZ PA-C [Primary Care Provider] - Follow up as needed I personally performed the services described in the documentation, reviewed and edited the documentation which was dictated to the scribe in my presence, and it accurately records my words and actions.
[2019-11-25] MEDS ORDERED: ACETAMINOPHEN 325 MG TABLET PO PRN (16:40)
[2019-11-25] MEDS ORDERED: MAG HYDROX/AL HYDROX/SIMETH SUSP 30 ML UDCUP PO PRN (16:40)
[2019-11-25] MEDS ORDERED: ONDANSETRON HCL INJ/PF 4 MG/2 ML SDV IV PRN (16:40)
--- NOTE | 2019-11-25 17:15 | PDOC H&P ---
History of Present Illness Admission Date/PCP: 11/25/19 16:31 JULY LORENZ PA-C Patient complains of: dyspnea History of Present Illness: KATINA BROWN is a 79 year old female with a history of hypertension, bronchiectasis, headaches, cervical spinal disease, back pain, hyperlipidemia, CAD s/p stent x1 who presented to the hospital with complaints of dyspnea non productive cough for the past few days. Patient states that she had an upper respiratory tract infection about a month ago and has been taking DayQuil for that. It seemed like a cough was resolving but suddenly came back about 3 to 4 days ago. Denies any fever or chills. Endorses dyspnea with worsening on exertion since yesterday. Was unable to sleep last night because of her dyspnea. Patient denies any leg swelling. Sleeps in an inclined bed but this is been chronic secondary to her back surgeries. Patient denies any history of congestive heart failure. Patient states that she takes Lasix daily due to prior history of lower extremity swelling which patient does not currently have. Patient also denies history of COPD but endorses smoking up until 2004. Past Medical History Cardiac Medical History: Reports: Coronary Artery Disease, Hyperlipidema - meds x 5 years, Hypertension - meds x 10 years, Heart Murmur Denies: Atrial Fibrillation, Congestive Heart Failure, Myocardial Infarction, Peripheral Vascular Disease, Pulmonary Embolism Pulmonary Medical History: Reports: Pneumonia - @ [facility] approx 2 years ago, Other - Bronchiectasis Denies: Asthma, Chronic Obstructive Pulmonary Disease (COPD), Respiratory Failure, Sleep Apnea, Tuberculosis Neurological Medical History: Denies: Seizures Renal/ Medical History: Denies: End Stage Renal Disease Malignancy Medical History: Reports: Cervical Cancer - [facility] 1969 (cervical vs "uterine" ca) Denies: Breast Cancer, Leukemia, Lung Cancer, Ovarian Cancer GI Medical History: Reports: Gastroesophageal Reflux Disease - meds x 10 years Denies: Crohn's Disease, Hepatitis, Hiatal Hernia Musculoskeltal Medical History: Reports: Arthritis Denies: Fibromyalgia Psychiatric Medical History: Reports: Depression - meds x 10 years Denies: Bipolar Disorder, Dementia, Post Traumatic Stress Disorder Hematology: Reports: Anemia Denies: Hemophilia, Sickle Cell Disease Infectious Medical History: Denies: HIV Past Surgical History Past Surgical History: Reports: Hysterectomy, Orthopedic Surgery - neck and rt foot, left knee Denies: Amputation, Appendectomy, Section, Cholecystectomy, Colostomy, Coronary Artery Bypass Graft, Gastric Bypass Surgery, Herniorrhaphy, Mastectomy, Pacemaker, Tonsillectomy, Tubal Ligation Social History Information Source: Patient, Relative Lives with: Spouse/Significant other Smoking Status: Former Smoker Frequency of Alcohol Use: None Hx Recreational Drug Use: No Hx Prescription Drug Abuse: No - Advance Directive Resuscitation Status: Full Code Family History Family History: COPD, Hypertension Parental Family History Reviewed: Yes Children Family History Reviewed: NA Sibling(s) Family History Reviewed.: NA Medication/Allergy Home Medications: Aspirin [Ecotrin 81 mg EC Tablet] 81 mg PO DAILY 10/14/11 Ezetimibe [Zetia] 10 mg PO QAM 02/16/12 Pantoprazole Sodium [Protonix] 40 mg PO BID 05/15/12 Amlodipine Besylate [Norvasc 5 mg Tablet] 5 mg PO DAILY 03/26/14 Ascorbic Acid [Vitamin C 500 mg Tablet] 500 mg PO BID 03/26/14 Atorvastatin Calcium [Lipitor 20 mg Tablet] 20 mg PO QHS 03/26/14 Sertraline HCl [Zoloft] 100 mg PO QAM 03/26/14 Guar Gum [Benefiber] 1 each PO BID 03/27/14 Calcium Carbonate/Vitamin D3 [Caltrate 600 Plus D3 Tablet] 1 tab PO BID 04/29/14 Oxycodone HCl/Acetaminophen [Percocet 10-325 mg Tablet] 1 each PO Q4H PRN 04/29/14 Albuterol Sulfate [Ventolin 0.083% Neb 2.5 mg/3 mL Ampul] 1 vial NEB Q4 PRN 06/10/15 Furosemide [Lasix 20 mg Tablet] 20 mg PO PRN PRN 06/10/15 Iron 325 mg PO BID 06/10/15 Nitroglycerin [Nitromist] 4.1 gm TL Q5M PRN 06/10/15 Pregabalin [Lyrica 50 mg Capsule] 50 mg PO QAM 06/10/15 Furosemide [Lasix 20 mg Tablet] 20 mg PO QAM #7 tablet 02/12/19 Allergies/Adverse Reactions: No Known Allergies Allergy (Verified 11/25/19 13:04) Review of Systems Constitutional: ABSENT: chills, fever(s) Nose, Mouth, and Throat: PRESENT: headache(s) Cardiovascular: PRESENT: dyspnea on exertion. ABSENT: chest pain Respiratory: PRESENT: cough, dyspnea. ABSENT: sputum Gastrointestinal: ABSENT: abdominal pain, constipation, diarrhea, nausea, vomiting Genitourinary: ABSENT: dysuria Musculoskeletal: PRESENT: back pain Integumentary: ABSENT: diaphoresis Neurological: ABSENT: confusion, dizziness Endocrine: ABSENT: polyuria Allergic/Immunologic: ABSENT: seasonal rhinorrhea Physical Exam Vital Signs: Temp Pulse Resp BP Pulse Ox 98.3 F 58 L 17 155/57 H 97 11/25/19 12:58 11/25/19 12:58 11/25/19 16:01 11/25/19 16:01 11/25/19 16:01 Intake & Output 11/24/19 11/25/19 11/26/19 06:59 06:59 06:59 Intake Total 500 Balance 500 Weight 76.204 kg General appearance: PRESENT: no acute distress, cooperative Neck exam: ABSENT: JVD Respiratory exam: PRESENT: crackles - minimal focal rales, rhonchi, unlabored, wheezes - profound diffuse expiratory wheeze b/l. ABSENT: accessory muscle use, retraction, tachypnea Cardiovascular exam: PRESENT: RRR, +S1, +S2. ABSENT: tachycardia GI/Abdominal exam: PRESENT: normal bowel sounds, soft. ABSENT: rebound, rigid, tenderness Extremities exam: ABSENT: pedal edema, +1 edema, +2 edema Neurological exam: PRESENT: alert, awake, oriented to person, oriented to place, oriented to time Psychiatric exam: PRESENT: normal mood. ABSENT: agitated, anxious Focused psych exam: ABSENT: pressured speech Skin exam: ABSENT: jaundice Results Laboratory Results: 11/25/19 14:08 11/25/19 14:08 11/25/19 11/25/19 14:08 14:08 WBC 5.0 RBC 4.19 Hgb 12.6 Hct 37.7 MCV 90 MCH 30.0 MCHC 33.3 RDW 14.1 H Plt Count 116 L Seg Neutrophils % 76.2 Sodium 129.3 L Potassium 4.5 Chloride 92 L Carbon Dioxide 26 Anion Gap 11 BUN 19 Creatinine 0.89 Est GFR ( Amer) > 60 Glucose 114 H Calcium 8.4 Total Bilirubin 0.4 AST 38 H Alkaline Phosphatase 80 Total Protein 6.6 Albumin 3.9 11/25/19 14:08 Troponin I 0.031 NT-Pro-B Natriuret Pep 7000 H Impressions: Chest X-Ray 11/25/19 13:07 IMPRESSION: Right middle lobe pneumonia Early or developing right lower lobe pneumonia No right pleural effusion or pneumothorax. Assessment and Plan - Diagnosis (1) Community acquired bacterial pneumonia Is this a current diagnosis for this admission?: Yes Plan: Cefepime and azithromycin. I discussed patient's PCPs office who states that patient has diagnosis of bronchiectasis without complications. Blood cultures obtained. Will check sputum cultures. Chest x-ray imaging and report reviewed by me which shows right middle lobe pneumonia (2) Dyspnea Qualifiers: Dyspnea type: shortness of breath Qualified Code(s): R06.02 - Shortness of breath; R06.00 - Dyspnea, unspecified; R06.01 - Orthopnea Is this a current diagnosis for this admission?: Yes Plan: Dyspnea is likely secondary to pneumonia and bronchospasms. There was concern for congestive heart failure given elevated BNP. However patient has significant wheezing on auscultation without any significant crackles, no overt pulmonary edema on x-ray and no evidence of right heart failure currently. Will go ahead and check echocardiogram (3) Bronchospasm, acute Is this a current diagnosis for this admission?: Yes Plan: Likely secondary to reactive airway disease or COPD exacerbation (though never b een diagnosed with copd) from current respiratory tract infection. Patient may have undiagnosed COPD especially given her profound smoking history. We will treat with frequent nebulizers and steroids. (4) Elevated troponin I level Is this a current diagnosis for this admission?: Yes Plan: EKG showing significant T wave inversions in several leads which appear more profound as compared to prior. Patient denies any chest pain. Troponin is 0.03. Trend out troponins. Patient does have history of CAD and admits to having 1 stent in the heart. Monitor on telemetry (5) Chronic pain Qualifiers: Chronic pain type: other chronic pain Qualified Code(s): G89.29 - Other chronic pain Is this a current diagnosis for this admission?: Yes Plan: Secondary to chronic cervical spine and back disease. Percocet as needed. (6) HTN (hypertension) Qualifiers: Hypertension type: essential hypertension Qualified Code(s): I10 - Essential (primary) hypertension Is this a current diagnosis for this admission?: Yes Plan: Continue current antihypertensive regimen - Time Time Spent with patient: 35 or more minutes
[2019-11-25] MEDS ORDERED: AZITHROMYCIN INJ 500 MG VIAL IV ONE (18:00)
[2019-11-25] MEDS ORDERED: AZITHROMYCIN 500 MG in DEXTROSE 5%-WATER 250 ML IV ONE (18:00)
[2019-11-25] MEDS: IPRATROPIUM/ALBUTEROL 0.5-2.5 MG/3 ML AMPUL NEB SCH (20:30)
--- NOTE | 2019-11-25 21:51 | EKG REPORT ---
SEVERITY:- ABNORMAL ECG - SINUS RHYTHM LVH WITH IVCD, LAD AND SECONDARY REPOL ABNRM : Confirmed by: Rhiannon Rienoso MD 25-Nov-2019 21:51:21
[2019-11-25] MEDS ORDERED: CEFTRIAXONE 1 GM/D5W RTU 1 GM/50 ML RTUPB IV SCH (22:00)
[2019-11-25] MEDS: CEFEPIME 1 GM/D5W RTU 1 GM/50 ML RTUPB IV SCH (22:47)
[2019-11-25] MEDS: OXYCODONE-ACETAMINOPHEN 5-325 MG TABLET PO PRN (22:51)
[2019-11-25] MEDS: SIMVASTATIN 40 MG TABLET PO SCH (22:51)
[2019-11-25] MEDS: LISINOPRIL 10 MG TABLET PO SCH (22:52)
[2019-11-25] MEDS: METHYLPREDNISOLONE INJ 40 MG/1 ML SDV IV SCH (22:52)
[2019-11-26] MEDS: IPRATROPIUM/ALBUTEROL 0.5-2.5 MG/3 ML AMPUL NEB SCH ×4 (02:50→20:12)
[2019-11-26] MEDS ORDERED: HYDRALAZINE HCL INJ/PF 20 MG/1 ML SDV IV PRN (04:50)
[2019-11-26] MEDS: OXYCODONE-ACETAMINOPHEN 5-325 MG TABLET PO PRN ×3 (05:00→18:16)
[2019-11-26 06:30] LABS: HEMATOCRIT 35.5 % (36.0-47.0); HEMOGLOBIN 12.2 g/dL (12.0-15.5); MEAN CORPUSCULAR HEMOGLOBIN 30.4 pg (27.0-33.4); MEAN CORPUSCULAR HGB CONC 34.3 g/dL (32.0-36.0); MEAN CORPUSCULAR VOLUME 89 fl (80-97); RED CELL DISTRIBUTION WIDTH 13.4 % (11.5-14.0)
[2019-11-26 06:35] LABS: ALBUMIN 3.6 g/dL (3.5-5.0); ALKALINE PHOSPHATASE 64 U/L (38-126); ANION GAP 10 (5-19); ASPARTATE AMINO TRANSFERASE 39 U/L (14-36); BILIRUBIN,DIRECT 0.3 mg/dL (0.0-0.4); BILIRUBIN,TOTAL 0.4 mg/dL (0.2-1.3); BLOOD UREA NITROGEN 19 mg/dL (7-20); CALCIUM 8.3 mg/dL (8.4-10.2); CARBON DIOXIDE 24 mmol/L (22-30); CHLORIDE 96 mmol/L (98-107); GLUCOSE 130 mg/dL (75-110); PHOSPHORUS 4.1 mg/dL (2.5-4.5); POTASSIUM 4.1 mmol/L (3.6-5.0); TOTAL PROTEIN 6.2 g/dL (6.3-8.2)
[2019-11-26 07:20] LABS: PLATELET COUNT 88 10^3/uL (150-450)
[2019-11-26] MEDS: EZETIMIBE 10 MG TABLET PO SCH (07:33)
[2019-11-26] MEDS ORDERED: FUROSEMIDE 20 MG TABLET PO SCH (08:00)
[2019-11-26] MEDS: METHYLPREDNISOLONE INJ 40 MG/1 ML SDV IV SCH ×2 (09:49→22:21)
[2019-11-26] MEDS: CEFEPIME 1 GM/D5W RTU 1 GM/50 ML RTUPB IV SCH ×2 (09:49→22:21)
[2019-11-26] MEDS: PANTOPRAZOLE SODIUM 20 MG TABLET.DR PO SCH ×2 (09:50→18:12)
[2019-11-26] MEDS: ENOXAPARIN SODIUM INJ 40 MG/0.4 ML DISP.SYRIN SUBCUT SCH (09:50)
[2019-11-26] MEDS: ASPIRIN 81 MG TABLET, ENT COATED PO SCH (09:50)
[2019-11-26] MEDS: LISINOPRIL 10 MG TABLET PO SCH ×2 (09:50→22:22)
[2019-11-26] MEDS: ASCORBIC ACID 500 MG TABLET PO SCH ×2 (09:50→18:12)
[2019-11-26] MEDS: FERROUS SULFATE 325 MG TABLET PO SCH ×2 (09:50→18:12)
[2019-11-26] MEDS ORDERED: PANTOPRAZOLE SODIUM 40 MG TABLET.DR PO SCH (10:00)
[2019-11-26] MEDS ORDERED: SERTRALINE HCL 50 MG TABLET PO SCH (10:00)
[2019-11-26] MEDS ORDERED: IRON 325 MG PO SCH (10:00)
[2019-11-26] MEDS: COLESTIPOL HCL 1 GM TABLET PO SCH ×2 (10:37→18:12)
--- NOTE | 2019-11-26 12:57 | PDOC PROGRESS REPORT ---
Subjective Progress Note for:: 11/26/19 Subjective:: This morning, patient states her breathing is a little bit better. She currently denies chest pain even despite rise in her troponin. Patient is still experiencing cough which is nonproductive so far. Denies any fevers. Appears to be very comfortable at rest and pleasant. Reason For Visit: PNEUMONIA REACTIVE AIRWAY DISEASE Physical Exam Vital Signs: Temp Pulse Resp BP Pulse Ox 98.2 F 62 16 164/54 H 98 11/26/19 07:07 11/26/19 08:17 11/26/19 08:17 11/26/19 07:07 11/26/19 08:17 Intake & Output 11/25/19 11/26/19 11/27/19 06:59 06:59 06:59 Intake Total 1145 50 Balance 1145 50 Weight 78.7 kg General appearance: PRESENT: no acute distress, cooperative Neck exam: ABSENT: JVD Respiratory exam: PRESENT: rhonchi, symmetrical, unlabored, wheezes - Expiratory wheeze diffusely. ABSENT: tachypnea Cardiovascular exam: PRESENT: RRR, +S1, +S2. ABSENT: tachycardia GI/Abdominal exam: PRESENT: normal bowel sounds, soft. ABSENT: rebound, rigid, tenderness Neurological exam: PRESENT: alert, awake Results Laboratory Results: 11/26/19 05:59 11/26/19 05:59 11/25/19 11/25/19 11/26/19 14:08 14:08 05:59 WBC 5.0 3.0 L RBC 4.19 4.00 Hgb 12.6 12.2 Hct 37.7 35.5 L MCV 90 89 MCH 30.0 30.4 MCHC 33.3 34.3 RDW 14.1 H 13.4 Plt Count 116 L 88 L Seg Neutrophils % 76.2 Sodium 129.3 L Potassium 4.5 Chloride 92 L Carbon Dioxide 26 Anion Gap 11 BUN 19 Creatinine 0.89 Est GFR ( Amer) > 60 Glucose 114 H Calcium 8.4 Phosphorus Total Bilirubin 0.4 AST 38 H Alkaline Phosphatase 80 Total Protein 6.6 Albumin 3.9 11/26/19 05:59 WBC RBC Hgb Hct MCV MCH MCHC RDW Plt Count Seg Neutrophils % Sodium 129.8 L Potassium 4.1 Chloride 96 L Carbon Dioxide 24 Anion Gap 10 BUN 19 Creatinine 0.71 Est GFR ( Amer) > 60 Glucose 130 H Calcium 8.3 L Phosphorus 4.1 Total Bilirubin 0.4 AST 39 H Alkaline Phosphatase 64 Total Protein 6.2 L Albumin 3.6 11/25/19 14:08 Blood Blood Culture (PCR) - Final 11/25/19 11/25/19 11/25/19 14:08 17:08 23:01 Troponin I 0.031 0.042 0.074 NT-Pro-B Natriuret Pep 7000 H 11/26/19 10:25 Troponin I 0.292 NT-Pro-B Natriuret Pep Impressions: Chest X-Ray 11/25/19 13:07 IMPRESSION: Right middle lobe pneumonia Early or developing right lower lobe pneumonia No right pleural effusion or pneumothorax. Assessment and Plan - Diagnosis (1) Community acquired bacterial pneumonia Is this a current diagnosis for this admission?: Yes Plan: Cefepime and azithromycin. I discussed patient's PCPs office who states that patient has diagnosis of bronchiectasis thus increased risk of Pseudomonas. Follow-up blood cultures. Will check sputum cultures. Mucomyst to help with expectoration (2) Dyspnea Qualifiers: Dyspnea type: shortness of breath Qualified Code(s): R06.02 - Shortness of breath; R06.00 - Dyspnea, unspecified; R06.01 - Orthopnea Is this a current diagnosis for this admission?: Yes Plan: Dyspnea is likely secondary to pneumonia and bronchospasms. There was concern for congestive heart failure given elevated BNP. However patient has significant wheezing on auscultation without any significant crackles, no overt pulmonary edema on x-ray and no evidence of right heart failure currently. Check echocardiogram (3) Bronchospasm, acute Is this a current diagnosis for this admission?: Yes Plan: Likely secondary to reactive airway disease or COPD exacerbation (though never been diagnosed with copd) from current respiratory tract infection. Patient may have undiagnosed COPD especially given her profound smoking history. I will treat with frequent nebulizers and steroids. (4) Elevated troponin I level Is this a current diagnosis for this admission?: Yes Plan: EKG showing significant T wave inversions in several leads which appear more profound as compared to prior. Patient still denies any chest pain. Troponin trended up to 0.29. We will continue to trend. Patient does have history of CAD and admits to having 1 stent in the heart. Monitor on telemetry Patient will ultimately need ischemic evaluation with a stress test at some point likely when her pneumonia has been treated. Consult cardiology (5) Chronic pain Qualifiers: Chronic pain type: other chronic pain Qualified Code(s): G89.29 - Other chronic pain Is this a current diagnosis for this admission?: Yes Plan: Secondary to chronic cervical spine and back disease. Percocet as needed. (6) HTN (hypertension) Qualifiers: Hypertension type: essential hypertension Qualified Code(s): I10 - Essential (primary) hypertension Is this a current diagnosis for this admission?: Yes Plan: BP is uncontrolled at the moment I have stopped her home labetalol as she came in bradycardic in the 50s Continue nifedipine 60 mg every afternoon. Add nifedipine 30 mg in the morning. Lasix increased from 20 to 40 mg daily. C/w lisinopril 20 mg q12, clonidine 0.1 mg daily. - Time Time Spent with patient: 15-24 minutes
[2019-11-26] MEDS ORDERED: NIFEDIPINE 30 MG TAB.ER.24 PO ONE (13:30)
[2019-11-26] MEDS ORDERED: FUROSEMIDE 20 MG TABLET PO ONE (13:30)
[2019-11-26] MEDS: CLONIDINE HCL 0.1 MG TABLET PO SCH (13:46)
[2019-11-26] MEDS: ACETYLCYSTEINE 10% NEB 400 MG/4 ML VIAL NEB SCH ×2 (14:14→20:12)
--- NOTE | 2019-11-26 16:20 | EKG REPORT ---
SEVERITY:- ABNORMAL ECG - SINUS ARRHYTHMIA, RATE 54-75 LVH WITH IVCD, LAD AND SECONDARY REPOL ABNRM : Confirmed by: Rhiannon Reinoso MD 26-Nov-2019 16:19:13
--- NOTE | 2019-11-26 16:20 | EKG REPORT ---
SEVERITY:- ABNORMAL ECG - SINUS RHYTHM LVH WITH IVCD, LAD AND SECONDARY REPOL ABNRM POSSIBLE DIFFUSE SUBENDOCARDIAL ISCHEMIA : Confirmed by: Rhiannon Reinoso MD 26-Nov-2019 16:19:52
[2019-11-26] MEDS: AZITHROMYCIN 250 MG TABLET PO SCH (18:12)
[2019-11-26] MEDS: NIFEDIPINE 30 MG TAB.ER.24 PO SCH (18:12)
--- NOTE | 2019-11-26 19:38 | PDOC CONSULTATION ---
Consultation Consult Date: 11/26/19 Attending physician:: DIEGO WHITMORE Provider Consulted: CHELO APODACA Consult reason:: Abnormal EKG History of Present Illness Admission Date/PCP: 11/25/19 16:31 JULY LORENZ PA-C Patient complains of: Mild chest tightness from coughing History of Present Illness: KATINA BROWN is a 79 year old female With the following active problems 1. Coronary artery disease 2. PCI-15 years ago 3. Systemic hypertension 4. Dyslipidemia Patient has been admitted with pneumonia and is receiving treatment with intrave nous antibiotics and bronchodilator therapy. She feels much better since admission. She had coronary intervention 15 years ago and is presently on aspirin, medications for hyperlipidemia as well as blood pressure medicines. In her usual day-to-day life she is fairly active and does not report chest pain or dyspnea or effort intolerance. Since being admitted with pneumonia she has had some chest rawness and tightness but sounds like this is mostly pleuritic in nature. Her EKGs since admission have been quite abnormal with deeply inverted T wave inversion in multiple leads. Her troponin profile is relatively flat and in low digits. At the time of my evaluation patient does not endorse any chest pain. Specifically she does not have any anginal equivalent either. Her cough is markedly improved since treatment of bronchospasm. She does not smoke cigarettes. She does not use alcohol. She had reported C-spine surgery with metal implants. Past Medical History Cardiac Medical History: Reports: Coronary Artery Disease, Hyperlipidema - meds x 5 years, Hypertension - meds x 10 years, Heart Murmur Denies: Atrial Fibrillation, Congestive Heart Failure, Myocardial Infarction, Peripheral Vascular Disease, Pulmonary Embolism Pulmonary Medical History: Reports: Bronchitis - multiple times, Pneumonia - @ [facility] approx 2 years ago, Other - Bronchiectasis Denies: Asthma, Chronic Obstructive Pulmonary Disease (COPD), Respiratory Failure, Sleep Apnea, Tuberculosis Neurological Medical History: Denies: Seizures Renal/ Medical History: Denies: End Stage Renal Disease Malignancy Medical History: Reports: Cervical Cancer - [facility] 1969 (cervical vs "uterine" ca) Denies: Breast Cancer, Leukemia, Lung Cancer, Ovarian Cancer GI Medical History: Reports: Gastroesophageal Reflux Disease - meds x 10 years Denies: Crohn's Disease, Hepatitis, Hiatal Hernia Musculoskeltal Medical History: Reports: Arthritis Denies: Fibromyalgia Psychiatric Medical History: Reports: Depression - meds x 10 years Denies: Bipolar Disorder, Dementia, Post Traumatic Stress Disorder Hematology: Reports: Anemia Denies: Hemophilia, Sickle Cell Disease Infectious Medical History: Denies: HIV Past Surgical History Past Surgical History: Reports: Hysterectomy, Orthopedic Surgery - neck and rt foot, left knee Denies: Amputation, Appendectomy, Section, Cholecystectomy, Colostomy, Coronary Artery Bypass Graft, Gastric Bypass Surgery, Herniorrhaphy, Mastectomy, Pacemaker, Tonsillectomy, Tubal Ligation Social History Lives with: Spouse/Significant other Smoking Status: Former Smoker Electronic Cigarette use?: No Last Time Smoked: 2004 Frequency of Alcohol Use: None Hx Recreational Drug Use: No Hx Prescription Drug Abuse: No - Advance Directive Resuscitation Status: Full Code Family History Family History: COPD, Hypertension Parental Family History Reviewed: No - No familial illnesses. Children Family History Reviewed: NA Sibling(s) Family History Reviewed.: NA Medication/Allergy Home Medications: Aspirin [Ecotrin 81 mg EC Tablet] 81 mg PO DAILY 10/14/11 Ezetimibe [Zetia] 10 mg PO QAM 02/16/12 Pantoprazole Sodium [Protonix] 20 mg PO BID 05/15/12 Ascorbic Acid [Vitamin C 500 mg Tablet] 500 mg PO BID 03/26/14 Sertraline HCl [Zoloft] 100 mg PO QAM 03/26/14 Oxycodone HCl/Acetaminophen [Percocet 10-325 mg Tablet] 1 each PO Q5HP PRN 04/29/14 Albuterol Sulfate [Ventolin 0.083% Neb 2.5 mg/3 mL Ampul] 1 vial NEB Q4 PRN 06/10/15 Iron 325 mg PO BID 06/10/15 Furosemide [Lasix 20 mg Tablet] 20 mg PO QAM #7 tablet 02/12/19 Clonidine HCl [Catapres] 0.1 mg PO DAILY 11/25/19 Colestipol HCl [Colestid 1 gm Tablet] 1 gm PO BID 11/25/19 Labetalol HCl [Normodyne 200 mg Tablet] 200 mg PO Q12 11/25/19 Lisinopril 10 mg PO QPM 11/25/19 Lisinopril [Prinivil] 20 mg PO DAILY 11/25/19 Nifedipine [Nifedipine ER] 60 mg PO QPM 11/25/19 Pravastatin Sodium 80 mg PO DAILY 11/25/19 Allergies/Adverse Reactions: No Known Allergies Allergy (Verified 11/25/19 13:04) Review of Systems Constitutional: PRESENT: as per HPI Cardiovascular: PRESENT: other - No anginal chest pain is reported Respiratory: PRESENT: cough Gastrointestinal: PRESENT: as per HPI Genitourinary: PRESENT: as per HPI Musculoskeletal: PRESENT: as per HPI Integumentary: PRESENT: as per HPI Physical Exam Vital Signs: Temp Pulse Resp BP Pulse Ox 98.5 F 69 18 155/64 H 98 11/26/19 14:44 11/26/19 14:44 11/26/19 14:44 11/26/19 14:44 11/26/19 14:44 Intake & Output 11/25/19 11/26/19 11/27/19 06:59 06:59 06:59 Intake Total 1145 905 Balance 1145 905 Weight 78.7 kg General appearance: PRESENT: no acute distress, cooperative, obese Head exam: PRESENT: atraumatic, normocephalic Eye exam: PRESENT: conjunctiva pink, EOMI Respiratory exam: PRESENT: crackles, decreased breath sounds, prolonged expira tory phas Cardiovascular exam: PRESENT: RRR, +S1, +S2, systolic murmur GI/Abdominal exam: PRESENT: soft Rectal exam: PRESENT: deferred Neurological exam: PRESENT: alert, awake, oriented to person, oriented to place, oriented to time Psychiatric exam: PRESENT: appropriate affect Skin exam: PRESENT: dry, intact Results Laboratory Results: 11/26/19 05:59 11/26/19 05:59 11/26/19 11/26/19 05:59 05:59 WBC 3.0 L RBC 4.00 Hgb 12.2 Hct 35.5 L MCV 89 MCH 30.4 MCHC 34.3 RDW 13.4 Plt Count 88 L Sodium 129.8 L Potassium 4.1 Chloride 96 L Carbon Dioxide 24 Anion Gap 10 BUN 19 Creatinine 0.71 Est GFR ( Amer) > 60 Glucose 130 H Calcium 8.3 L Phosphorus 4.1 Total Bilirubin 0.4 AST 39 H Alkaline Phosphatase 64 Total Protein 6.2 L Albumin 3.6 11/25/19 14:08 Blood Blood Culture (PCR) - Final 11/25/19 11/25/19 11/25/19 14:08 17:08 23:01 Troponin I 0.031 0.042 0.074 NT-Pro-B Natriuret Pep 7000 H 11/26/19 11/26/19 10:25 15:14 Troponin I 0.292 0.359 NT-Pro-B Natriuret Pep EKG Comments: Twelve-lead EKG. Independently reviewed by me. [id number] 2013 Sinus rhythm, first-degree AV block, left ventricular hypertrophy with mild repolarization abnormality, QTC is 442 ms Twelve-lead EKG 11/26/2019 Sinus rhythm 65 bpm, left ventricular hypertrophy. Deep T wave inversions across leads V3 through V6 and inferior leads. Lateral leads are also affected. QTC is 529 ms Impressions: Chest X-Ray 11/25/19 13:07 IMPRESSION: Right middle lobe pneumonia Early or developing right lower lobe pneumonia No right pleural effusion or pneumothorax. Assessment & Plan - Diagnosis (1) Community acquired bacterial pneumonia Is this a current diagnosis for this admission?: Yes Plan: Continue antibiotics and respiratory toilet per protocol. (2) Elevated troponin I level Is this a current diagnosis for this admission?: Yes Plan: This is in the setting of infection and bacterial pneumonia. Unlikely to be acute coronary syndrome. However EKG is abnormal with deeply inverted T waves likely repolarization abnormality in the setting of severe illness. (3) Abnormal QT interval present on electrocardiogram Plan: QTC is prolonged on EKG. This is likely in the setting of severe illness together with drug effects. Would recommend stopping sertraline Would recommend discontinuing ondansetron Avoid QTC prolonging medications Keep potassium between 4 mEq/L to 5 mEq/L Check a magnesium level and keep magnesium at are above 2 mg/dL This appears to be primarily repolarization abnormality although ischemia cannot be excluded. Would recommend continued treatment of infection. We will check an echocardiogram to exclude infiltrative cardiomyopathy such as amyloid or other similar illnesses. May need ischemia evaluation once EKG has been repeated after resolution of pneumonia. - Notes Notes: Discontinue sertraline Stop ondansetron Check echocardiogram Continue present treatment for pneumonia
[2019-11-26] MEDS: SIMVASTATIN 40 MG TABLET PO SCH (22:21)
[2019-11-27] MEDS: OXYCODONE-ACETAMINOPHEN 5-325 MG TABLET PO PRN ×3 (00:37→16:48)
[2019-11-27] MEDS: IPRATROPIUM/ALBUTEROL 0.5-2.5 MG/3 ML AMPUL NEB SCH ×4 (02:46→20:18)
[2019-11-27] MEDS: ACETYLCYSTEINE 10% NEB 400 MG/4 ML VIAL NEB SCH ×4 (02:48→20:18)
[2019-11-27] MEDS: EZETIMIBE 10 MG TABLET PO SCH (07:43)
[2019-11-27 07:57] LABS: HEMATOCRIT 37.6 % (36.0-47.0); HEMOGLOBIN 12.9 g/dL (12.0-15.5); MEAN CORPUSCULAR HEMOGLOBIN 30.4 pg (27.0-33.4); MEAN CORPUSCULAR HGB CONC 34.4 g/dL (32.0-36.0); MEAN CORPUSCULAR VOLUME 88 fl (80-97); PLATELET COUNT 118 10^3/uL (150-450); RED BLOOD COUNT 4.25 10^6/uL (3.72-5.28); RED CELL DISTRIBUTION WIDTH 13.5 % (11.5-14.0); WHITE BLOOD COUNT 3.4 10^3/uL (4.0-10.5)
[2019-11-27 08:12] LABS: ALBUMIN 3.7 g/dL (3.5-5.0); ALKALINE PHOSPHATASE 65 U/L (38-126); ANION GAP 11 (5-19); ASPARTATE AMINO TRANSFERASE 38 U/L (14-36); BILIRUBIN,TOTAL 0.3 mg/dL (0.2-1.3); BLOOD UREA NITROGEN 15 mg/dL (7-20); CALCIUM 8.4 mg/dL (8.4-10.2); CARBON DIOXIDE 26 mmol/L (22-30); CHLORIDE 91 mmol/L (98-107); GLUCOSE 121 mg/dL (75-110); POTASSIUM 4.1 mmol/L (3.6-5.0); TOTAL PROTEIN 6.2 g/dL (6.3-8.2)
[2019-11-27] MEDS: ENOXAPARIN SODIUM INJ 40 MG/0.4 ML DISP.SYRIN SUBCUT SCH (11:05)
[2019-11-27] MEDS: METHYLPREDNISOLONE INJ 40 MG/1 ML SDV IV SCH ×2 (11:06→21:48)
[2019-11-27] MEDS: LISINOPRIL 10 MG TABLET PO SCH ×2 (11:06→21:48)
[2019-11-27] MEDS: CLONIDINE HCL 0.1 MG TABLET PO SCH (11:06)
[2019-11-27] MEDS: ASPIRIN 81 MG TABLET, ENT COATED PO SCH (11:07)
[2019-11-27] MEDS: FUROSEMIDE 20 MG TABLET PO SCH (11:07)
[2019-11-27] MEDS: PANTOPRAZOLE SODIUM 20 MG TABLET.DR PO SCH ×2 (11:07→17:27)
[2019-11-27] MEDS: FERROUS SULFATE 325 MG TABLET PO SCH ×2 (11:07→17:28)
[2019-11-27] MEDS: COLESTIPOL HCL 1 GM TABLET PO SCH ×2 (11:08→17:29)
[2019-11-27] MEDS: NIFEDIPINE 30 MG TAB.ER.24 PO SCH ×2 (11:08→17:29)
[2019-11-27] MEDS: ASCORBIC ACID 500 MG TABLET PO SCH ×2 (11:08→17:27)
[2019-11-27] MEDS: CEFEPIME 1 GM/D5W RTU 1 GM/50 ML RTUPB IV SCH ×2 (11:09→21:48)
--- NOTE | 2019-11-27 12:49 | PDOC PROGRESS REPORT ---
Subjective Progress Note for:: 11/27/19 Subjective:: Patient was seen and examined. She was in good spirits. She has visitors today. No chest pain or dyspnea reported. She had echocardiogram performed. No arrhythmia overnight. Reason For Visit: PNEUMONIA REACTIVE AIRWAY DISEASE Physical Exam Vital Signs: Temp Pulse Resp BP Pulse Ox 98.3 F 84 20 131/65 H 95 11/27/19 04:30 11/27/19 09:19 11/27/19 09:19 11/27/19 04:30 11/27/19 09:19 Intake & Output 11/26/19 11/27/19 11/28/19 06:59 06:59 06:59 Intake Total 1145 2005 Output Total 400 Balance 1145 1605 Weight 78.7 kg 83.2 kg General appearance: PRESENT: no acute distress, cooperative, obese Head exam: PRESENT: atraumatic, normocephalic Eye exam: PRESENT: conjunctiva pink, EOMI Respiratory exam: PRESENT: crackles, decreased breath sounds, symmetrical Cardiovascular exam: PRESENT: RRR, +S1, +S2 Rectal exam: PRESENT: deferred Musculoskeletal exam: PRESENT: normal inspection Neurological exam: PRESENT: alert, awake, oriented to person, oriented to place, oriented to time, oriented to situation Psychiatric exam: PRESENT: appropriate affect Skin exam: PRESENT: dry, intact Results Laboratory Results: 11/27/19 06:40 11/27/19 06:40 11/26/19 11/27/19 11/27/19 23:28 06:40 06:40 WBC 3.4 L RBC 4.25 Hgb 12.9 Hct 37.6 MCV 88 MCH 30.4 MCHC 34.4 RDW 13.5 Plt Count 118 L Sodium 127.9 L Potassium 4.1 Chloride 91 L Carbon Dioxide 26 Anion Gap 11 BUN 15 Creatinine 0.60 Est GFR ( Amer) > 60 Glucose 121 H Serum Osmolality Calcium 8.4 Magnesium 1.6 Total Bilirubin 0.3 AST 38 H Alkaline Phosphatase 65 Total Protein 6.2 L Albumin 3.7 TSH Urine Osmolality 256 L 11/27/19 11/27/19 06:40 06:40 WBC RBC Hgb Hct MCV MCH MCHC RDW Plt Count Sodium Potassium Chloride Carbon Dioxide Anion Gap BUN Creatinine Est GFR ( Amer) Glucose Serum Osmolality 263 L Calcium Magnesium Total Bilirubin AST Alkaline Phosphatase Total Protein Albumin TSH 2.12 Urine Osmolality 11/25/19 14:08 Blood Blood Culture (PCR) - Final 11/25/19 11/25/19 11/25/19 14:08 17:08 23:01 Troponin I 0.031 0.042 0.074 NT-Pro-B Natriuret Pep 7000 H 11/26/19 11/26/19 11/27/19 10:25 15:14 06:40 Troponin I 0.292 0.359 0.261 NT-Pro-B Natriuret Pep Impressions: Chest X-Ray 11/25/19 13:07 IMPRESSION: Right middle lobe pneumonia Early or developing right lower lobe pneumonia No right pleural effusion or pneumothorax. Assessment & Plan - Diagnosis (1) Community acquired bacterial pneumonia Is this a current diagnosis for this admission?: Yes Plan: Continue antibiotic therapy and pulmonary toilet. (2) Elevated troponin I level Is this a current diagnosis for this admission?: Yes Plan: Would not proceed with ischemia evaluation at this time. Elevated troponins without persisting chest pain. Likely secondary to infection and stress. If need be with stratification can be pursued as an outpatient. (3) Abnormal QT interval present on electrocardiogram Plan: Repolarization abnormality on EKG. This can be due to acute illness However patient is on sertraline. This has been stopped Would not use QT prolonging medications at this time given baseline increase in QT - Notes Notes: Continues to improve. Supportive care with treatment of pneumonia We will review echocardiogram.
--- NOTE | 2019-11-27 14:25 | PDOC PROGRESS REPORT ---
Subjective Progress Note for:: 11/27/19 Subjective:: Patient says breathing is better today Reason For Visit: PNEUMONIA REACTIVE AIRWAY DISEASE Physical Exam Vital Signs: Temp Pulse Resp BP Pulse Ox 97.9 F 86 15 168/75 H 97 11/27/19 11:08 11/27/19 11:08 11/27/19 11:08 11/27/19 11:08 11/27/19 11:08 Intake & Output 11/26/19 11/27/19 11/28/19 06:59 06:59 06:59 Intake Total 1145 2005 50 Output Total 400 Balance 1145 1605 50 Weight 78.7 kg 83.2 kg General appearance: PRESENT: no acute distress, well-developed, well-nourished Head exam: PRESENT: atraumatic, normocephalic Eye exam: PRESENT: conjunctiva pink, EOMI, PERRLA. ABSENT: scleral icterus Ear exam: PRESENT: normal external ear exam Mouth exam: PRESENT: moist, tongue midline Neck exam: ABSENT: carotid bruit, JVD, lymphadenopathy, thyromegaly Respiratory exam: PRESENT: rales, rhonchi, unlabored. ABSENT: wheezes Cardiovascular exam: PRESENT: RRR. ABSENT: diastolic murmur, rubs, systolic murmur Pulses: PRESENT: normal dorsalis pedis pul Vascular exam: PRESENT: normal capillary refill GI/Abdominal exam: PRESENT: normal bowel sounds, soft. ABSENT: distended, guarding, mass, organolmegaly, rebound, tenderness Rectal exam: PRESENT: deferred Extremities exam: PRESENT: full ROM. ABSENT: calf tenderness, clubbing, pedal edema Neurological exam: PRESENT: alert, awake, oriented to person, oriented to place, oriented to time, oriented to situation, CN II-XII grossly intact. ABSENT: motor sensory deficit Psychiatric exam: PRESENT: appropriate affect, normal mood. ABSENT: homicidal ideation, suicidal ideation Skin exam: PRESENT: dry, intact, warm. ABSENT: cyanosis, rash Results Laboratory Results: 11/27/19 06:40 11/27/19 06:40 11/26/19 11/27/19 11/27/19 23:28 06:40 06:40 WBC 3.4 L RBC 4.25 Hgb 12.9 Hct 37.6 MCV 88 MCH 30.4 MCHC 34.4 RDW 13.5 Plt Count 118 L Sodium 127.9 L Potassium 4.1 Chloride 91 L Carbon Dioxide 26 Anion Gap 11 BUN 15 Creatinine 0.60 Est GFR ( Amer) > 60 Glucose 121 H Serum Osmolality Calcium 8.4 Magnesium 1.6 Total Bilirubin 0.3 AST 38 H Alkaline Phosphatase 65 Total Protein 6.2 L Albumin 3.7 TSH Urine Osmolality 256 L 11/27/19 11/27/19 06:40 06:40 WBC RBC Hgb Hct MCV MCH MCHC RDW Plt Count Sodium Potassium Chloride Carbon Dioxide Anion Gap BUN Creatinine Est GFR ( Amer) Glucose Serum Osmolality 263 L Calcium Magnesium Total Bilirubin AST Alkaline Phosphatase Total Protein Albumin TSH 2.12 Urine Osmolality 11/25/19 14:08 Blood Blood Culture (PCR) - Final 11/25/19 11/25/19 11/25/19 14:08 17:08 23:01 Troponin I 0.031 0.042 0.074 NT-Pro-B Natriuret Pep 7000 H 11/26/19 11/26/19 11/27/19 10:25 15:14 06:40 Troponin I 0.292 0.359 0.261 NT-Pro-B Natriuret Pep Impressions: Chest X-Ray 11/25/19 13:07 IMPRESSION: Right middle lobe pneumonia Early or developing right lower lobe pneumonia No right pleural effusion or pneumothorax. Assessment and Plan - Diagnosis (2) Bronchospasm, acute Is this a current diagnosis for this admission?: Yes Plan: Continue with bronchodilators patient likely has underlying COPD though previously undiagnosed (3) Chronic pain Qualifiers: Chronic pain type: other chronic pain Qualified Code(s): G89.29 - Other chronic pain Is this a current diagnosis for this admission?: Yes Plan: Secondary to chronic cervical spine and back disease. Percocet as needed. (4) Community acquired bacterial pneumonia Is this a current diagnosis for this admission?: Yes Plan: Cefepime and azithromycin. Apparently empiric Pseudomonas coverage due to history of bronchiectasis (5) Dyspnea Qualifiers: Dyspnea type: shortness of breath Qualified Code(s): R06.02 - Shortness of breath; R06.00 - Dyspnea, unspecified; R06.01 - Orthopnea Is this a current diagnosis for this admission?: Yes (6) Elevated troponin I level Is this a current diagnosis for this admission?: Yes Plan: EKG showing significant T wave inversions in several leads which appear more profound as compared to prior. Patient still denies any chest pain. Troponin trended up to 0.29. She has underlying coronary artery disease however at this point elevated troponin likely due to demand ischemia As long as she remains stable this can be followed up as outpatient - Time Time Spent with patient: 15-24 minutes
[2019-11-27 15:36] LABS: ANION GAP 15 (5-19); BLOOD UREA NITROGEN 16 mg/dL (7-20); CALCIUM 8.9 mg/dL (8.4-10.2); CARBON DIOXIDE 24 mmol/L (22-30); CHLORIDE 89 mmol/L (98-107); GLUCOSE 131 mg/dL (75-110); POTASSIUM 4.7 mmol/L (3.6-5.0)
--- NOTE | 2019-11-27 16:58 | XCELERA REPORT ---
[address] [address] Transthoracic Echocardiogram Report Name: KATINA BROWN Age: 79 yrs Gender: Female : 1940 Patient Status: Inpatient Patient Location: [address] [place] [address] Study Date: 11/26/2019 07:29 PM History: CAD NSTEMI Height: 64 in Weight: 168 lb BSA: 1.8 m2 Procedure: A complete two-dimensional transthoracic echocardiogram was performed (2D, M-mode, spectral and color flow Doppler). The study was technically difficult with many images being suboptimal in quality. Reason For Study: possible chf Previous Evaluation: No previous studies were available. History: CAD. HTN. Vascular surgeries/interventions: Remote PCI. Ordering Physician: DIEGO WHITMORE Performed By: Anjelica Blanchard Interpretation Summary The study was technically difficult with many images being suboptimal in quality. Left ventricular systolic function is mildly reduced. The Ejection Fraction estimate is 45-50% The right ventricle is normal in size and function. There is a mild to moderate amount of aortic regurgitation There is no pericardial effusion. MMode/2D Measurements & Calculations RVDd: 2.3 cm LVIDd: 5.3 cm FS: 28.0 % Ao root diam: 3.3 cm IVSd: 1.2 cm LVIDs: 3.8 cm EDV(Teich): Ao root area: LVPWd: 1.0 cm 137.7 ml 8.4 cm2 ESV(Teich): 63.7 mlLA dimension: 3.8 cm EF(Teich): 53.8 % LVLd ap4: 6.5 cm SV(MOD-sp4): EDV(MOD-sp4): 43.0 ml 77.0 ml LVLs ap4: 4.9 cm ESV(MOD-sp4): 34.0 ml EF(MOD-sp4): 55.8 % Doppler Measurements & Calculations MV E max mindi: MV P1/2t max mindi: Ao V2 max: AI max mindi: 77.9 cm/sec 85.1 cm/sec 158.7 cm/sec 421.0 cm/sec MV A max mindi: MV P1/2t: 90.6 msec Ao max PG: AI max P.3 cm/sec MVA(P1/2t): 2.4 cm2 10.1 mmHg 71.0 mmHg MV E/A: 0.71 MV dec slope: AI dec slope: 275.1 cm/sec2 287.0 cm/sec2 MV dec time: AI P1/2t: 0.25 sec 429.7 msec LV V1 max PG: PA V2 max: PI end-d mindi: TR max mindi: 5.0 mmHg 102.6 cm/sec 165.6 cm/sec 244.3 cm/sec LV V1 max: PA max P.2 mmHg TR max P.4 cm/sec 23.9 mmHg AV P1/2t-pr_phl: MV P1/2t-pr_phl: 440.1 msec 90.6 msec Left Ventricle There is mild to moderate concentric left ventricular hypertrophy. The left ventricle is borderline dilated. Left ventricular systolic function is mildly reduced. The Ejection Fraction estimate is 45-50%. Doppler measurements suggest impaired left ventricular relaxation, which is associated with grade I/IV or mild diastolic dysfunction. There is distal anterior wall mild hypokinesis. There is distal septal wall mild hypokinesis. There is mid to distal septal wall mild hypokinesis. Right Ventricle The right ventricle is normal in size and function. Atria The right atrium is normal. The left atrium is borderline dilated. Mitral Valve The mitral valve is grossly normal. There is no mitral valve stenosis. There is a trace amount of mitral regurgitation. Aortic Valve The aortic valve opens well. The aortic valve is sclerotic, but shows no functional abnormality. The aortic valve is normal in structure and function. The aortic valve is trileaflet. There is no aortic valve stenosis. There is a mild to moderate amount of aortic regurgitation. Tricuspid Valve The tricuspid valve is normal in structure and function. There is a trace amount of tricuspid regurgitation. Doppler findings do not suggest pulmonary hypertension. Pulmonic Valve The pulmonic valve is not well visualized. There is a trace amount of pulmonic regurgitation. Great Vessels The aortic root is normal size. The inferior vena cava appeared normal and decreased > 50% with respiration (RAP 5-10 mmHg). Effusions There is no pericardial effusion. : DIEGO WHITMORE Anil
[2019-11-27] MEDS: AZITHROMYCIN 250 MG TABLET PO SCH (17:28)
[2019-11-27] MEDS: SIMVASTATIN 40 MG TABLET PO SCH (21:48)
[2019-11-28] MEDS: ACETYLCYSTEINE 10% NEB 400 MG/4 ML VIAL NEB SCH ×4 (02:13→20:17)
[2019-11-28] MEDS: IPRATROPIUM/ALBUTEROL 0.5-2.5 MG/3 ML AMPUL NEB SCH ×4 (02:13→20:17)
[2019-11-28] MEDS: EZETIMIBE 10 MG TABLET PO SCH (09:01)
[2019-11-28] MEDS: FUROSEMIDE 20 MG TABLET PO SCH (10:26)
[2019-11-28] MEDS: PANTOPRAZOLE SODIUM 20 MG TABLET.DR PO SCH ×2 (10:26→17:53)
[2019-11-28] MEDS: CLONIDINE HCL 0.1 MG TABLET PO SCH (10:26)
[2019-11-28] MEDS: ASCORBIC ACID 500 MG TABLET PO SCH ×2 (10:27→17:54)
[2019-11-28] MEDS: FERROUS SULFATE 325 MG TABLET PO SCH ×2 (10:27→17:53)
[2019-11-28] MEDS: COLESTIPOL HCL 1 GM TABLET PO SCH ×2 (10:27→17:52)
[2019-11-28] MEDS: LISINOPRIL 10 MG TABLET PO SCH ×2 (10:27→21:06)
[2019-11-28] MEDS: NIFEDIPINE 30 MG TAB.ER.24 PO SCH ×2 (10:28→17:53)
[2019-11-28] MEDS: ASPIRIN 81 MG TABLET, ENT COATED PO SCH (10:28)
[2019-11-28] MEDS: METHYLPREDNISOLONE INJ 40 MG/1 ML SDV IV SCH ×2 (10:29→21:06)
[2019-11-28] MEDS: ENOXAPARIN SODIUM INJ 40 MG/0.4 ML DISP.SYRIN SUBCUT SCH (10:29)
[2019-11-28] MEDS: CEFEPIME 1 GM/D5W RTU 1 GM/50 ML RTUPB IV SCH ×2 (10:30→21:07)
[2019-11-28] MEDS: OXYCODONE-ACETAMINOPHEN 5-325 MG TABLET PO PRN ×2 (11:02→17:55)
--- NOTE | 2019-11-28 13:40 | CDI QUERY ---
CDI Query CDI Review: Dear Provider: To better reflect your patients severity of illness, morbidity, and resource utilization Please specify and document in the Progress Notes and Discharge Summary if you are monitoring / treating / evaluating any of the following conditions: Query Clinical indicators Please indicate in your documentation if COPD exacerbation is: Present Ruled out Undetermined Other Noted in the Hospitalist H&P: Bronchospasm, acute Is this a current diagnosis for this admission?: Yes Plan: Likely secondary to reactive airway disease or COPD exacerbation (though never been diagnosed with copd) from current respiratory tract infection. Patient may have undiagnosed COPD especially given her profound smoking history. We will treat with frequent nebulizers and steroids. The terms probable, suspected, likely, possible or still to be ruled out may be used if you are unable to determine the exact nature of a condition. Thank you, Clinical Documentation Physician Advisors ADELAIDE Jackson RN, BSN RN Office [phone] Office [phone]
--- NOTE | 2019-11-28 14:51 | PDOC PROGRESS REPORT ---
Subjective Progress Note for:: 11/28/19 Subjective:: Patient feels better, has been able to ambulate with less dyspnea Reason For Visit: PNEUMONIA REACTIVE AIRWAY DISEASE Physical Exam Vital Signs: Temp Pulse Resp BP Pulse Ox 98.1 F 87 18 155/57 H 95 11/28/19 07:45 11/28/19 14:00 11/28/19 14:00 11/28/19 07:45 11/28/19 14:00 Intake & Output 11/27/19 11/28/19 11/29/19 06:59 06:59 06:59 Intake Total 2004 3231 50 Output Total 400 1500 Balance 1605 1731 50 Weight 83.2 kg 79.7 kg General appearance: PRESENT: no acute distress, well-developed, well-nourished Head exam: PRESENT: atraumatic, normocephalic Eye exam: PRESENT: conjunctiva pink, EOMI, PERRLA. ABSENT: scleral icterus Ear exam: PRESENT: normal external ear exam Mouth exam: PRESENT: moist, tongue midline Neck exam: ABSENT: carotid bruit, JVD, lymphadenopathy, thyromegaly Respiratory exam: PRESENT: crackles, decreased breath sounds, rales, rhonchi, unlabored, wheezes - Basal crackles and rhonchi with scattered wheezing, R >L, improved today, other Cardiovascular exam: PRESENT: RRR. ABSENT: diastolic murmur, rubs, systolic murmur Pulses: PRESENT: normal dorsalis pedis pul Vascular exam: PRESENT: normal capillary refill GI/Abdominal exam: PRESENT: normal bowel sounds, soft. ABSENT: distended, guarding, mass, organolmegaly, rebound, tenderness Rectal exam: PRESENT: deferred Extremities exam: PRESENT: full ROM. ABSENT: calf tenderness, clubbing, pedal edema Neurological exam: PRESENT: alert, awake, oriented to person, oriented to place, oriented to time, oriented to situation, CN II-XII grossly intact. ABSENT: motor sensory deficit Psychiatric exam: PRESENT: appropriate affect, normal mood. ABSENT: homicidal ideation, suicidal ideation Skin exam: PRESENT: dry, intact, warm. ABSENT: cyanosis, rash Results Laboratory Results: 11/27/19 06:40 11/27/19 15:12 11/27/19 15:12 Sodium 128.2 L Potassium 4.7 Chloride 89 L Carbon Dioxide 24 Anion Gap 15 BUN 16 Creatinine 0.65 Est GFR ( Amer) > 60 Glucose 131 H Calcium 8.9 11/25/19 14:08 Blood Blood Culture (PCR) - Final 11/25/19 14:08 Blood Blood Culture - Final Micrococcus Species 11/26/19 20:40 Sputum Gram Stain - Final 11/25/19 11/25/19 11/25/19 14:08 17:08 23:01 Troponin I 0.031 0.042 0.074 NT-Pro-B Natriuret Pep 7000 H 11/26/19 11/26/19 11/27/19 10:25 15:14 06:40 Troponin I 0.292 0.359 0.261 NT-Pro-B Natriuret Pep Impressions: Chest X-Ray 11/25/19 13:07 IMPRESSION: Right middle lobe pneumonia Early or developing right lower lobe pneumonia No right pleural effusion or pneumothorax. Assessment and Plan - Diagnosis (1) Bronchospasm, acute Is this a current diagnosis for this admission?: Yes Plan: This is likely Exacerbated with acute PNA Continue with bronchodilators patient likely has underlying COPD though previously undiagnosed (2) Chronic pain Qualifiers: Chronic pain type: other chronic pain Qualified Code(s): G89.29 - Other c hronic pain Is this a current diagnosis for this admission?: Yes Plan: Secondary to chronic cervical spine and back disease. Percocet as needed. (3) Community acquired bacterial pneumonia Is this a current diagnosis for this admission?: Yes Plan: Cefepime and azithromycin. Apparently empiric Pseudomonas coverage due to history of bronchiectasis She will benefit from at least one more day of IV therapy/ Will reevaluate in am (4) Dyspnea Qualifiers: Dyspnea type: shortness of breath Qualified Code(s): R06.02 - Shortness of breath; R06.00 - Dyspnea, unspecified; R06.01 - Orthopnea Is this a current diagnosis for this admission?: Yes Plan: Dyspnea is likely secondary to pneumonia and bronchospasms. Echo shows EF 45-50% with hypokinesis. Will need f/u with PCP for further evaluation T (5) Elevated troponin I level Is this a current diagnosis for this admission?: Yes - Time Medications reviewed and adjusted accordingly: Yes Within: within 24 hours
--- NOTE | 2019-11-28 15:49 | PDOC PROGRESS REPORT ---
Subjective Progress Note for:: 11/28/19 Subjective:: Patient was seen and examined. No chest pain or dyspnea reported. Echocardiogram was performed last night. Her appetite is much improved. No respiratory symptoms reported.. Reason For Visit: PNEUMONIA REACTIVE AIRWAY DISEASE Physical Exam Vital Signs: Temp Pulse Resp BP Pulse Ox 98.1 F 87 18 155/57 H 95 11/28/19 07:45 11/28/19 14:00 11/28/19 14:00 11/28/19 07:45 11/28/19 14:00 Intake & Output 11/27/19 11/28/19 11/29/19 06:59 06:59 06:59 Intake Total 2004 3231 50 Output Total 400 1500 Balance 1605 1731 50 Weight 83.2 kg 79.7 kg General appearance: PRESENT: no acute distress, obese, well-developed Head exam: PRESENT: atraumatic, normocephalic Eye exam: PRESENT: EOMI Respiratory exam: PRESENT: crackles, decreased breath sounds, symmetrical, unlabored Cardiovascular exam: PRESENT: RRR, +S1, +S2 Pulses: PRESENT: normal radial pulses GI/Abdominal exam: PRESENT: soft Rectal exam: PRESENT: deferred Neurological exam: PRESENT: alert, awake, oriented to person, oriented to place, oriented to time, oriented to situation Psychiatric exam: PRESENT: appropriate affect Skin exam: PRESENT: dry, intact, normal color Results Laboratory Results: 11/27/19 06:40 11/27/19 15:12 11/27/19 15:12 Sodium 128.2 L Potassium 4.7 Chloride 89 L Carbon Dioxide 24 Anion Gap 15 BUN 16 Creatinine 0.65 Est GFR ( Amer) > 60 Glucose 131 H Calcium 8.9 11/26/19 20:40 Sputum Gram Stain - Final 11/26/19 20:40 Sputum Sputum Culture - Final C.albicans/C.dubliniensis Normal Rin Absent 11/25/19 14:08 Blood Blood Culture (PCR) - Final 11/25/19 14:08 Blood Blood Culture - Final Micrococcus Species 11/25/19 11/25/19 11/25/19 14:08 17:08 23:01 Troponin I 0.031 0.042 0.074 NT-Pro-B Natriuret Pep 7000 H 11/26/19 11/26/19 11/27/19 10:25 15:14 06:40 Troponin I 0.292 0.359 0.261 NT-Pro-B Natriuret Pep Impressions: Chest X-Ray 11/25/19 13:07 IMPRESSION: Right middle lobe pneumonia Early or developing right lower lobe pneumonia No right pleural effusion or pneumothorax. Assessment & Plan - Diagnosis (1) Community acquired bacterial pneumonia Is this a current diagnosis for this admission?: Yes Plan: Continue antibiotic therapy and pulmonary toilet. (2) Elevated troponin I level Is this a current diagnosis for this admission?: Yes Plan: Would not proceed with ischemia evaluation at this time. Elevated troponins without persisting chest pain. Likely secondary to infection and stress. If need be with stratification can be pursued as an outpatient. Echocardiogram showed mildly reduced left ventricular ejection fraction. Given this and elevated troponins and abnormal EKG will likely need re-stratification as an outpatient. This can be pursued based on clinical course. Would be ideal to repeat an echocardiogram once the infection is resolved (3) Abnormal QT interval present on electrocardiogram Plan: Repolarization abnormality on EKG. This can be due to acute illness However patient is on sertraline. This has been stopped Would not use QT prolonging medications at this time given baseline increase in QT Magnesium level is low; replete to greater than 2 mg/dL.
[2019-11-28 16:50] LABS: ANION GAP 17 (5-19); BLOOD UREA NITROGEN 19 mg/dL (7-20); CALCIUM 8.7 mg/dL (8.4-10.2); CARBON DIOXIDE 23 mmol/L (22-30); CHLORIDE 89 mmol/L (98-107); GLUCOSE 109 mg/dL (75-110)
[2019-11-28] MEDS: AZITHROMYCIN 250 MG TABLET PO SCH (17:53)
[2019-11-28] MEDS: SIMVASTATIN 40 MG TABLET PO SCH (21:07)
[2019-11-29] MEDS: ACETYLCYSTEINE 10% NEB 400 MG/4 ML VIAL NEB SCH ×2 (01:55→08:24)
[2019-11-29] MEDS: IPRATROPIUM/ALBUTEROL 0.5-2.5 MG/3 ML AMPUL NEB SCH ×3 (01:55→14:10)
[2019-11-29] MEDS: ASPIRIN 81 MG TABLET, ENT COATED PO SCH (09:33)
[2019-11-29] MEDS: FERROUS SULFATE 325 MG TABLET PO SCH (09:33)
[2019-11-29] MEDS: EZETIMIBE 10 MG TABLET PO SCH (09:33)
[2019-11-29] MEDS: LISINOPRIL 10 MG TABLET PO SCH (09:33)
[2019-11-29] MEDS: FUROSEMIDE 20 MG TABLET PO SCH (09:33)
[2019-11-29] MEDS: ASCORBIC ACID 500 MG TABLET PO SCH (09:33)
[2019-11-29] MEDS: PANTOPRAZOLE SODIUM 20 MG TABLET.DR PO SCH (09:33)
[2019-11-29] MEDS: CLONIDINE HCL 0.1 MG TABLET PO SCH (09:33)
[2019-11-29] MEDS: COLESTIPOL HCL 1 GM TABLET PO SCH (09:34)
[2019-11-29] MEDS: NIFEDIPINE 30 MG TAB.ER.24 PO SCH (09:34)
[2019-11-29] MEDS: CEFEPIME 1 GM/D5W RTU 1 GM/50 ML RTUPB IV SCH (09:35)
[2019-11-29] MEDS: ENOXAPARIN SODIUM INJ 40 MG/0.4 ML DISP.SYRIN SUBCUT SCH (09:35)
[2019-11-29] MEDS: METHYLPREDNISOLONE INJ 40 MG/1 ML SDV IV SCH (09:35)
[2019-11-29 09:37] LABS: ABSOLUTE LYMPHOCYTES (AUTO) 1.1 10^3/uL (0.5-4.7); ABSOLUTE MONOCYTES (AUTO) 0.8 10^3/uL (0.1-1.4); ABSOLUTE NEUT (AUTO) 6.3 10^3/uL (1.7-8.2); BASOPHILS % (AUTO) 0.1 % (0-2); HEMATOCRIT 38.5 % (36.0-47.0); HEMOGLOBIN 13.4 g/dL (12.0-15.5); LYMPHOCYTES % (AUTO) 13.5 % (13-45); MEAN CORPUSCULAR HEMOGLOBIN 30.7 pg (27.0-33.4); MEAN CORPUSCULAR HGB CONC 34.8 g/dL (32.0-36.0); MEAN CORPUSCULAR VOLUME 88 fl (80-97); MONOCYTES % (AUTO) 9.9 % (3-13); PLATELET COUNT 198 10^3/uL (150-450); RED BLOOD COUNT 4.37 10^6/uL (3.72-5.28); RED CELL DISTRIBUTION WIDTH 13.5 % (11.5-14.0); SEGMENTED NEUTROPHILS % (AUTO) 76.5 % (42-78); TOTAL CELLS COUNTED % (AUTO) 100 %
[2019-11-29 09:40] LABS: WHITE BLOOD COUNT 8.2 10^3/uL (4.0-10.5)
[2019-11-29 09:54] LABS: ANION GAP 15 (5-19); BLOOD UREA NITROGEN 21 mg/dL (7-20); CALCIUM 8.7 mg/dL (8.4-10.2); CARBON DIOXIDE 23 mmol/L (22-30); CHLORIDE 93 mmol/L (98-107); GLUCOSE 118 mg/dL (75-110); POTASSIUM 3.8 mmol/L (3.6-5.0)
[2019-11-29] MEDS: OXYCODONE-ACETAMINOPHEN 5-325 MG TABLET PO PRN (09:56)
[2019-11-29 14:27] VITALS: BP 151/68
--- NOTE | 2019-11-29 14:33 | PDOC DISCHARGE SUMMARY ---
Impression - Admit/DC Date/PCP Admission Date/Primary Care Provider: 11/25/19 16:31 JULY LORENZ PA-C Discharge Date: 11/29/19 - Discharge Diagnosis (1) Community acquired bacterial pneumonia Is this a current diagnosis for this admission?: Yes (2) Bronchospasm, acute Is this a current diagnosis for this admission?: Yes (3) Elevated troponin I level Is this a current diagnosis for this admission?: Yes (4) Chronic pain Is this a current diagnosis for this admission?: Yes (5) Dyspnea Is this a current diagnosis for this admission?: Yes (6) Abnormal QT interval present on electrocardiogram Is this a current diagnosis for this admission?: Yes (7) Hyponatremia Is this a current diagnosis for this admission?: Yes (8) Anemia Is this a current diagnosis for this admission?: Yes (9) HTN (hypertension) Is this a current diagnosis for this admission?: Yes - Additional Information Resuscitation Status: Full Code Discharge Diet: Cardiac Discharge Activity: Activity As Tolerated Referrals: JULY LORENZ PA-C [Primary Care Provider] - 12/05/19 1:15 pm Prescriptions: Prednisone 20 mg PO DAILY 5 Days #10 tablet Azithromycin [Zithromax 250 mg Tablet] 250 mg PO QPM 3 Days #3 tablet Home Medications: Aspirin [Ecotrin 81 mg EC Tablet] 81 mg PO DAILY 10/14/11 Ezetimibe [Zetia] 10 mg PO QAM 02/16/12 Pantoprazole Sodium [Protonix] 20 mg PO BID 05/15/12 Ascorbic Acid [Vitamin C 500 mg Tablet] 500 mg PO BID 03/26/14 Oxycodone HCl/Acetaminophen [Percocet 10-325 mg Tablet] 1 each PO Q5HP PRN 04/29/14 Albuterol Sulfate [Ventolin 0.083% Neb 2.5 mg/3 mL Ampul] 1 vial NEB Q4 PRN 06/10/15 Iron 325 mg PO BID 06/10/15 Furosemide [Lasix 20 mg Tablet] 20 mg PO QAM #7 tablet 02/12/19 Clonidine HCl [Catapres] 0.1 mg PO DAILY 11/25/19 Colestipol HCl [Colestid 1 gm Tablet] 1 gm PO BID 11/25/19 Labetalol HCl [Normodyne 200 mg Tablet] 200 mg PO Q12 02/03/20 Lisinopril 10 mg PO QPM 11/25/19 Lisinopril [Prinivil] 20 mg PO DAILY 11/25/19 Nifedipine [Nifedipine ER] 60 mg PO QPM 11/25/19 Pravastatin Sodium 80 mg PO DAILY 11/25/19 Azithromycin [Zithromax 250 mg Tablet] 250 mg PO QPM 3 Days #3 tablet 11/29/19 Prednisone 20 mg PO DAILY 5 Days #10 tablet 11/29/19 History of Present Illiness History of Present Illness: KATINA BROWN is a 79 year old female Patient was admitted with difficulty breathing and shortness of breath. She was thought to have coverage acquired backslash pneumonia. She was also found to have an elevated troponin level as well as prolonged QT interval. Please see admitting history and physical for full details. Hospital Course Hospital Course: Patient was admitted for further management. She was started on intravenous antibiotics and was seen by cardiology due to the elevated troponin as well as prolonged QT interval. Patient had no chest pain and elevated troponin is felt to be secondary to demand supply mismatch. Follow up with electrical transmission engineer can be considered as outpatient if clinically warranted. She was also found to have an abnormal QT interval progression and this was thought to be a likely due to acute illness however as she was on sertraline this has been discontinued and this should be reevaluated as outpatient. Patient also had electrolyte abnormalities including hyponatremia and hypochloremia. This could be due to her diuretics and I would suggest outpatient follow-up with BMP to evaluate her medications including her diuretics and adjust as needed. She was treated for community-acquired pneumonia. She did have some secondary bronchospasms associated with these. It is felt the patient likely has an underlying undiagnosed COPD. Bronchospasm was likely exacerbated with acute pneumonia. At the time of discharge bronchospasm is resolved. Echocardiogram done revealed moderate concentric left ventricular hypertrophy with an ejection fraction of 45 to 50% with mild hypokinesis in distal septal, anterior fermin. Will suggest outpatient follow-up with cardiology for further evaluation. She was assessed by Dr. Zepeda electrical transmission engineer in hospital and suggest no acute work-up at this time Physical Exam Vital Signs: Temp Pulse Resp BP Pulse Ox 97.6 F 47 L 16 151/68 H 97 11/29/19 14:23 11/29/19 14:23 11/29/19 14:23 11/29/19 14:23 11/29/19 14:23 Intake & Output 11/28/19 11/29/19 11/30/19 06:59 06:59 06:59 Intake Total 3231 3250 350 Output Total 1500 2000 Balance 1731 1250 350 Weight 79.7 kg 78.9 kg General appearance: PRESENT: no acute distress, cooperative Head exam: PRESENT: atraumatic, normocephalic Eye exam: PRESENT: conjunctiva pink, EOMI, PERRLA. ABSENT: scleral icterus Mouth exam: PRESENT: tongue midline Neck exam: ABSENT: carotid bruit, JVD, lymphadenopathy, thyromegaly Respiratory exam: PRESENT: rhonchi - few scattered rhonchi. ABSENT: rales, wheezes Cardiovascular exam: PRESENT: RRR. ABSENT: diastolic murmur, rubs, systolic murmur Pulses: PRESENT: normal dorsalis pedis pul Vascular exam: PRESENT: normal capillary refill GI/Abdominal exam: PRESENT: normal bowel sounds, soft. ABSENT: distended, guarding, mass, organolmegaly, rebound, tenderness Rectal exam: PRESENT: deferred Extremities exam: PRESENT: full ROM. ABSENT: calf tenderness, clubbing, pedal edema Neurological exam: PRESENT: alert, awake, oriented to person, oriented to place, oriented to time, oriented to situation, CN II-XII grossly intact. ABSENT: motor sensory deficit Psychiatric exam: PRESENT: appropriate affect, normal mood. ABSENT: homicidal ideation, suicidal ideation Skin exam: PRESENT: dry, intact, warm. ABSENT: cyanosis, rash Results Laboratory Results: WBC 8.2 10^3/uL (4.0-10.5) D 11/29/19 09:04 RBC 4.37 10^6/uL (3.72-5.28) 11/29/19 09:04 Hgb 13.4 g/dL (12.0-15.5) 11/29/19 09:04 Hct 38.5 % (36.0-47.0) 11/29/19 09:04 MCV 88 fl (80-97) 11/29/19 09:04 MCH 30.7 pg (27.0-33.4) 11/29/19 09:04 MCHC 34.8 g/dL (32.0-36.0) 11/29/19 09:04 RDW 13.5 % (11.5-14.0) 11/29/19 09:04 Plt Count 198 10^3/uL (150-450) 11/29/19 09:04 Lymph % (Auto) 13.5 % (13-45) 11/29/19 09:04 [place] % (Auto) 9.9 % (3-13) 11/29/19 09:04 Eos % (Auto) 0.0 % (0-6) 11/29/19 09:04 Baso % (Auto) 0.1 % (0-2) 11/29/19 09:04 Absolute Neuts (auto) 6.3 10^3/uL (1.7-8.2) 11/29/19 09:04 Absolute Lymphs (auto) 1.1 10^3/uL (0.5-4.7) 11/29/19 09:04 Absolute Monos (auto) 0.8 10^3/uL (0.1-1.4) 11/29/19 09:04 Absolute Eos (auto) 0.0 10^3/uL (0.0-0.6) 11/29/19 09:04 Absolute Basos (auto) 0.0 10^3/uL (0.0-0.2) 11/29/19 09:04 Seg Neutrophils % 76.5 % (42-78) 11/29/19 09:04 PT 14.3 SEC (11.4-15.4) 11/25/19 14:08 INR 1.11 11/25/19 14:08 APTT 32.9 SEC (23.5-35.8) 11/25/19 14:08 Sodium 130.5 mmol/L (137-145) L 11/29/19 09:04 Potassium 3.8 mmol/L (3.6-5.0) 11/29/19 09:04 Chloride 93 mmol/L (98-107) L 11/29/19 09:04 Carbon Dioxide 23 mmol/L (22-30) 11/29/19 09:04 Anion Gap 15 (5-19) 11/29/19 09:04 BUN 21 mg/dL (7-20) H 11/29/19 09:04 Creatinine 0.64 mg/dL (0.52-1.25) 11/29/19 09:04 Est GFR ( Amer) > 60 (>60) 11/29/19 09:04 Est GFR (MDRD) Non-Af > 60 (>60) 11/29/19 09:04 Glucose 118 mg/dL (75-110) H 11/29/19 09:04 Serum Osmolality 263 mOsm/kg (275-301) L 11/27/19 06:40 Calcium 8.7 mg/dL (8.4-10.2) 11/29/19 09:04 Phosphorus 4.1 mg/dL (2.5-4.5) 11/26/19 05:59 Magnesium 1.6 mg/dL (1.6-2.3) 11/27/19 06:40 Total Bilirubin 0.3 mg/dL (0.2-1.3) 11/27/19 06:40 Direct Bilirubin 0.0 mg/dL (0.0-0.4) 11/27/19 06:40 Neonat Total Bilirubin Not Reportable 11/27/19 06:40 Neonat Direct Bilirubin Not Reportable 11/27/19 06:40 Neonat Indirect Bili Not Reportable 11/27/19 06:40 AST 38 U/L (14-36) H 11/27/19 06:40 ALT 17 U/L (<35) 11/27/19 06:40 Alkaline Phosphatase 65 U/L (38-126) 11/27/19 06:40 Troponin I 0.261 ng/mL 11/27/19 06:40 NT-Pro-B Natriuret Pep 7000 pg/mL (<450) H 11/25/19 14:08 Total Protein 6.2 g/dL (6.3-8.2) L 11/27/19 06:40 Albumin 3.7 g/dL (3.5-5.0) 11/27/19 06:40 TSH 2.12 uIU/mL (0.47-4.68) 11/27/19 06:40 Urine Osmolality 256 mOsm/kg (300-900) L 11/26/19 23:28 11/25/19 11/25/19 11/25/19 14:08 17:08 23:01 Troponin I 0.031 0.042 0.074 NT-Pro-B Natriuret Pep 7000 H 11/26/19 11/26/19 11/27/19 10:25 15:14 06:40 Troponin I 0.292 0.359 0.261 NT-Pro-B Natriuret Pep Impressions: Chest X-Ray 11/25/19 13:07 IMPRESSION: Right middle lobe pneumonia Early or developing right lower lobe pneumonia No right pleural effusion or pneumothorax. Plan Health Concerns: Tobacco abuse Plan of Treatment: Suggest follow-up with her PCP for medication management, as well as referral to electrical transmission engineer as clinically indicated Time Spent: Greater than 30 Minutes Stroke Is this a Stroke Patient?: No Acute Heart Failure - Is this a Heart Failure Patient?: No
== END 2019-11-29 15:15 | disposition home or self-care (01) | DRG 194 ==
LOC: ER 12:14 → EH 16:31 → 4S 20:02
PROVIDERS: ADMIT Internal Medicine; ATTEND Internal Medicine
DX: J15.9 Unspecified bacterial pneumonia (principal); E87.1 Hypo-osmolality and hyponatremia; J98.01 Acute bronchospasm; D64.9 Anemia, unspecified; I10 Essential (primary) hypertension; I25.10 Atherosclerotic heart disease of native coronary artery without angina pectoris; E78.5 Hyperlipidemia, unspecified; F32.9 Major depressive disorder, single episode, unspecified; G89.29 Other chronic pain; K21.9 Gastro-esophageal reflux disease without esophagitis; E78.00 Pure hypercholesterolemia, unspecified; Z79.899 Other long term (current) drug therapy; Z85.41 Personal history of malignant neoplasm of cervix uteri; Z87.891 Personal history of nicotine dependence; Z95.5 Presence of coronary angioplasty implant and graft; Z88.3 Allergy status to other anti-infective agents; Z88.8 Allergy status to other drugs, medicaments and biological substances
CPT/HCPCS: 36415; 71046; 80048; 80053; 83735; 83880; 83930; 83935; 84100; 84443; 84484; 85025; 85027; 85610; 85730; 87040; 87070; 87077; 87150; 87205; 93005; 93010; 93306; 94640; 96361; 96365; 96367; 96375; 99285; J0360; J0456; J0692; J1650; J1940; J2543; J2920; J3370; J3490; J7040; J7060; J7620

== ENCOUNTER → 2019-12-10 | Outpatient (CLI) | payer MEDICARE ==
--- NOTE | 2019-12-10 13:39 | RADIOLOGY REPORT (SQ) ---
EXAM DESCRIPTION: CHEST PA/LATERAL COMPLETED DATE/TIME: 12/10/2019 12:16 pm REASON FOR STUDY: PNEUMONIA, UNSPECIFIED ORGANISM COMPARISON: 11/25/2019 EXAM PARAMETERS: NUMBER OF VIEWS: two views TECHNIQUE: Digital Frontal and Lateral radiographic views of the chest acquired. RADIATION DOSE: NA LIMITATIONS: none FINDINGS: LUNGS AND PLEURA: Subsegmental atelectasis in the right middle lobe. The infiltrate prese nt on the earlier study in the middle lobe has resolved. MEDIASTINUM AND HILAR STRUCTURES: No masses or contour abnormalities. HEART AND VASCULAR STRUCTURES: Heart normal size. No evidence for failure. BONES: No acute findings. HARDWARE: None in the chest. OTHER: No other significant finding. IMPRESSION: Right middle lobe atelectatic changes with improvement in the appearance of the chest. TECHNICAL DOCUMENTATION: JOB ID: [id number] [employer]- All Rights Reserved Reading location - IP/workstation name: [email or web address]
== END ==
LOC: OD 11:48
PROVIDERS: ATTEND Physician Assistant
DX: J18.9 Pneumonia, unspecified organism (principal)
CPT/HCPCS: 71046

== ENCOUNTER → 2020-01-02 | Outpatient (CLI) | payer MEDICARE ==
--- NOTE | 2020-01-02 16:09 | RADIOLOGY REPORT (SQ) ---
EXAM DESCRIPTION: CT ABD/PELVIS WITH IV ORAL COMPLETED DATE/TIME: 01/02/2020 3:24 pm REASON FOR STUDY: R10.31 RIGHT LOWER QUADRANT PAIN R10.31 RIGHT LOWER QUADRANT PAIN COMPARISON: None. TECHNIQUE: CT scan of the abdomen and pelvis performed with intravenous and oral contrast using latrice adalgisa scanning technique with dynamic intravenous contrast injection. Images reviewed with lung, soft t issue, and bone windows. Reconstructed coronal and sagittal MPR images reviewed. Delayed images for e valuation of the urinary system also acquired. All images stored on PACS. All CT scanners at this facility use dose modulation, iterative reconstruction, and/or weight based d osing when appropriate to reduce radiation dose to as low as reasonably achievable (ALARA). [facility]: Dose Right [facility]: CareDose [facility]: Dose Right [facility]: Teradose 4D [facility]: [employer] CONTRAST TYPE AND DOSE: contrast/concentration: Isovue 350.00 mg/ml; Total Contrast Delivered: 88.0 ml; Total Saline Delivered: 70.0 ml RENAL FUNCTION: GFR > 60. RADIATION DOSE: CT Rad equipment meets quality standard of care and radiation dose reduction techniq ues were employed. CTDIvol: 13.2 - 13.2 mGy. DLP: 1281 mGy-cm. . LIMITATIONS: Artifact associated with battery pack right flank. FINDINGS: LOWER CHEST: Cardiomegaly. LIVER: Multiple cysts, the largest approaching 5 cm left lobe. SPLEEN: Normal size. No focal lesions. PANCREAS: No masses. No significant calcifications. No adjacent inflammation or peripancreatic fluid collections. Pancreatic duct not dilated. GALLBLADDER: No identified stones by CT criteria. No inflammatory changes to suggest cholecystitis. ADRENAL GLANDS: No significant masses or asymmetry. RIGHT KIDNEY AND URETER: No solid masses. 2 mm midpole renal stone. No hydronephrosis or hydroure ter. LEFT KIDNEY AND URETER: Cortical cysts approaching 4 cm. No solid masses. No significant calcifica tions. No hydronephrosis or hydroureter. AORTA AND VESSELS: No aneurysm. RETROPERITONEUM: No retroperitoneal adenopathy, hemorrhage or masses. BOWEL AND PERITONEAL CAVITY: No obstruction. No visualized masses. No free fluid. No inflammatory ch anges or thickening of bowel wall. APPENDIX: Normal. PELVIS: No significant masses. Normal bladder. No free fluid. ABDOMINAL WALL: No masses. No hernias. BONES: No significant or acute findings. OTHER: No other significant finding. IMPRESSION: No acute findings. Small nonobstructing right renal calculus. TECHNICAL DOCUMENTATION: JOB ID: [id number] Quality ID # [id number]: Final reports with documentation of one or more dose reduction techniques (e.g., Au tomated exposure control, adjustment of the mA and/or kV according to patient size, use of iterative reconstruction technique) 2010 [employer]- All Rights Reserved Reading location - IP/workstation name: [email or web address]
== END ==
LOC: RAD 14:40
PROVIDERS: ATTEND Surgery
DX: N20.0 Calculus of kidney (principal); R10.31 Right lower quadrant pain; I51.7 Cardiomegaly; K76.89 Other specified diseases of liver
CPT/HCPCS: 74177

== ENCOUNTER → 2020-06-12 | Outpatient (CLI) | payer MEDICARE ==
[2020-06-12 09:59] LABS: ANION GAP 11 (5-19); BLOOD UREA NITROGEN 27 mg/dL (7-20); CALCIUM 9.2 mg/dL (8.4-10.2); CARBON DIOXIDE 25 mmol/L (22-30); CHLORIDE 100 mmol/L (98-107); GLUCOSE 99 mg/dL (75-110); POTASSIUM 5.5 mmol/L (3.6-5.0)
[2020-06-12 15:30] LABS: ALBUMIN 4.4 g/dL (3.5-5.0); ALKALINE PHOSPHATASE 85 U/L (38-126); ASPARTATE AMINO TRANSFERASE 30 U/L (14-36); BILIRUBIN,TOTAL 0.6 mg/dL (0.2-1.3); CHOLESTEROL 143.46 mg/dL (0-200); TOTAL PROTEIN 6.8 g/dL (6.3-8.2); TRIGLYCERIDES 81 mg/dL (<150)
[2020-06-12 15:41] LABS: DIRECT LDL 71 mg/dL (<100)
== END ==
LOC: OD 07:57
PROVIDERS: ATTEND Internal Medicine Cardiovascular Disease
DX: R06.02 Shortness of breath (principal); I11.0 Hypertensive heart disease with heart failure; I50.20 Unspecified systolic (congestive) heart failure; E87.5 Hyperkalemia; E78.00 Pure hypercholesterolemia, unspecified; Z79.899 Other long term (current) drug therapy
CPT/HCPCS: 36415; 80048; 80061; 80076; 83880

== ENCOUNTER → 2020-06-15 | Outpatient (CLI) | payer MEDICARE ==
[2020-06-15 08:28] LABS: HEMATOCRIT 33.2 % (36.0-47.0); HEMOGLOBIN 11.4 g/dL (12.0-15.5); MEAN CORPUSCULAR HEMOGLOBIN 31.2 pg (27.0-33.4); MEAN CORPUSCULAR HGB CONC 34.4 g/dL (32.0-36.0); MEAN CORPUSCULAR VOLUME 91 fl (80-97); PLATELET COUNT 210 10^3/uL (150-450); RED BLOOD COUNT 3.66 10^6/uL (3.72-5.28); RED CELL DISTRIBUTION WIDTH 13.7 % (11.5-14.0); WHITE BLOOD COUNT 5.3 10^3/uL (4.0-10.5)
== END ==
LOC: OD 07:49
PROVIDERS: ATTEND Internal Medicine Nephrology
DX: E87.5 Hyperkalemia (principal); R06.02 Shortness of breath; Z79.899 Other long term (current) drug therapy
CPT/HCPCS: 36415; 84132; 85027

== ENCOUNTER → 2020-07-14 | Outpatient (CLI) | payer MEDICARE ==
[2020-07-14 14:54] LABS: ABSOLUTE EOSINOPHILS # (AUTO) 0.1 10^3/uL (0.0-0.6); ABSOLUTE LYMPHOCYTES (AUTO) 1.2 10^3/uL (0.5-4.7); ABSOLUTE MONOCYTES (AUTO) 0.5 10^3/uL (0.1-1.4); BASOPHILS % (AUTO) 0.2 % (0-2); EOSINOPHILS % (AUTO) 1.9 % (0-6); HEMATOCRIT 34.2 % (36.0-47.0); HEMOGLOBIN 11.9 g/dL (12.0-15.5); LYMPHOCYTES % (AUTO) 24.4 % (13-45); MEAN CORPUSCULAR HEMOGLOBIN 31.6 pg (27.0-33.4); MEAN CORPUSCULAR HGB CONC 34.8 g/dL (32.0-36.0); MEAN CORPUSCULAR VOLUME 91 fl (80-97); MONOCYTES % (AUTO) 10.6 % (3-13); PLATELET COUNT 147 10^3/uL (150-450); RED BLOOD COUNT 3.77 10^6/uL (3.72-5.28); RED CELL DISTRIBUTION WIDTH 13.4 % (11.5-14.0); SEGMENTED NEUTROPHILS % (AUTO) 62.9 % (42-78); TOTAL CELLS COUNTED % (AUTO) 100 %; WHITE BLOOD COUNT 4.8 10^3/uL (4.0-10.5)
[2020-07-14 15:08] LABS: ANION GAP 10 (5-19); BLOOD UREA NITROGEN 53 mg/dL (7-20); CALCIUM 9.4 mg/dL (8.4-10.2); CARBON DIOXIDE 21 mmol/L (22-30); CHLORIDE 106 mmol/L (98-107); GLUCOSE 93 mg/dL (75-110)
[2020-07-14 15:13] LABS: POTASSIUM 5.9 mmol/L (3.6-5.0)
[2020-07-14 16:37] LABS: FREE T4 (FREE THYROXINE) 0.72 ng/dL (0.78-2.19)
[2020-07-14 16:51] LABS: THYROID STIMULATING HORMONE 0.42 uIU/mL (0.47-4.68)
[2020-07-15 11:45] LABS: HEMATOCRIT 34.2 % (36.0-47.0); HEMOGLOBIN 11.9 g/dL (12.0-15.5); MEAN CORPUSCULAR HEMOGLOBIN 31.6 pg (27.0-33.4); MEAN CORPUSCULAR HGB CONC 34.8 g/dL (32.0-36.0); MEAN CORPUSCULAR VOLUME 91 fl (80-97); PLATELET COUNT 147 10^3/uL (150-450); RED BLOOD COUNT 3.77 10^6/uL (3.72-5.28); RED CELL DISTRIBUTION WIDTH 13.4 % (11.5-14.0); WHITE BLOOD COUNT 4.8 10^3/uL (4.0-10.5)
== END ==
LOC: OD 14:17
PROVIDERS: ATTEND Internal Medicine Cardiovascular Disease
DX: I50.20 Unspecified systolic (congestive) heart failure (principal); R60.0 Localized edema; N18.3 Chronic kidney disease, stage 3 (moderate); R00.2 Palpitations; D64.9 Anemia, unspecified
CPT/HCPCS: 36415; 80048; 83880; 84439; 84443; 85025; 85027

== ENCOUNTER → 2020-07-17 | Outpatient (CLI) | payer MEDICARE | LOC: OD 07:52 | PROVIDERS: ATTEND Internal Medicine Nephrology | DX: E87.5 Hyperkalemia (principal) | CPT/HCPCS: 36415; 84132 ==

== ENCOUNTER → 2020-09-15 | Outpatient (CLI) | payer MEDICARE ==
--- NOTE | 2020-09-15 09:17 | WOMENS IMAGING REPORT ---
EXAM DESCRIPTION: BILAT SCREENING MAMMO W/CAD IMAGES COMPLETED DATE/TIME: 09/15/2020 8:46 am REASON FOR STUDY: ROUTINE BILATERAL SCREENING;Z12.31 Z12.31 ENCNTR SCREEN MAMMOGRAM FOR MALIGNANT N EOPLASM OF MARIEL COMPARISON: Priors back to 2009 EXAM PARAMETERS: Standard craniocaudal and mediolateral oblique views of each breast recorded using digital acquisition. Read with the assistance of CAD. .[facility] - [place] Direct Turnaround Planner Version 9.2 LIMITATIONS: None. FINDINGS: No suspicious masses, suspicious calcifications or architectural distortion. No areas of c oncern. IMPRESSION: NEGATIVE MAMMOGRAM. BIRADS 1 BREAST DENSITY: b. There are scattered areas of fibroglandular density. BIRAD: ASSESSMENT: 1 NEGATIVE RECOMMENDATION: ROUTINE SCREENING COMMENT: The patient has been notified of the results by letter per MQSA requirements. Additional no tification policies are in place for contacting patient with suspicious or incomplete findings. Quality ID #[id number]: [employer] recommends an annual screening mammogram for women aged 40 years or over. This facility utilizes a reminder system to ensure that all patients receive reminder letters, and/or direct phone calls for appointments. This includes reminders for routine scr eening mammograms, diagnostic mammograms, or other Breast Imaging Interventions when appropriate. Th is patient will be placed in the appropriate reminder system. TECHNICAL DOCUMENTATION: FINDING NUMBER: (1) ASSESSMENT: (1) JOB ID: [id number] 2010 [employer]- All Rights Reserved Reading location - IP/workstation name: [email or web address]
== END ==
LOC: WI 09:22
PROVIDERS: ATTEND Physician Assistant
DX: Z12.31 Encounter for screening mammogram for malignant neoplasm of breast (principal)
CPT/HCPCS: 77067

== ENCOUNTER → 2020-09-21 | Outpatient (CLI) | payer MEDICARE | LOC: OD 12:18 | PROVIDERS: ATTEND Internal Medicine Nephrology | DX: E87.5 Hyperkalemia (principal) | CPT/HCPCS: 36415; 84132 ==